=== PATIENT | male | born 1970 | race Caucasian/White ===

== ENCOUNTER 2019-02-22 15:37 | Emergency (ER) | payer SELFPAY ==
[2019-02-22 15:40] VITALS: BP 164/101; PULSE 112; RESP 20; TEMP 36.8; O2SAT 95
--- NOTE | 2019-02-22 15:48 | W.ED.GENAD ---
Discharge Plan Disposition Patient Disposition: HOME Condition: Good Discharge Details Chief Complaint: EarProblem Clinical Impression: Otitis media Primary Care Provider: Arsen Arreola ED Provider: Jose Calvo Home Meds and New Rx's Prescriptions: New amoxicillin-pot clavulanate [Augmentin] 875-125 mg tablet 1 tab PO BID Qty: 14 RF: 0 loratadine 10 mg capsule 10 mg PO DAILY Qty: 14 RF: 0 Discharge Instructions Instructions: Otitis Media (ED) Additional Instructions: Please take the antibiotic as directed. Please take the antihistamine. Please take 800 mg of ibuprofen every 6 hours and 1000 mg of Tylenol every 6 hours if you notice any worsening of your symptoms, or any new symptoms such as vomiting, diarrhea, fever, chills, shortness of breath, chest pain, numbness, weakness, or fainting , please return immediately to the emergency department for reevaluation. Please follow up with your primary care provider as soon as possible for reassessment and reevaluation. As always, it was a pleasure participating in your medical care today. . Referrals: Arsen Arreola [Primary Care Provider] - Medical Decision Making This is a pleasant 48-year-old male who presents for evaluation of ear pain. Physical exam demonstrates evidence of mild otitis media on the right. No red flags of malignant otitis externa, or other significant abnormalities. No nuchal tenderness or rigidity. No fever or chills. Signs and symptoms are consistent with mild otitis media. He will be given a prescription for antibiotic, loratadine, and recommend continue Tylenol and Motrin. I have extensively reviewed the treatment plan and discharge instructions with the patient. I have addressed all patient concerns at this time. The patient was made aware of what symptoms to monitor for that would warrant a return to the emergency department. Discussed the plan with the patient, they demonstrate verbal understanding and agreement with our assessment and plan at this time. HPI General Date/Time Provider Initiated Documentation: 02/22/19 15:48. HPI Narrative: This is a pleasant 48-year-old male who presents today for evaluation of right-sided ear pain for the last 3 days. He denies fever or chills. He denies headache, vision changes, nausea vomiting or diarrhea. He denies any significant hearing changes. He has not been swimming. He denies any other modifying factors. He has been taking Tylenol but has had no significant improvement of his symptoms with this. He denies any other complaints or modifying factors. Related Data Home Medications Medication Instructions Recorded Confirmed amoxicillin-pot clavulanate 1 tab PO BID #14 tab 02/22/19 [Augmentin] loratadine 10 mg PO DAILY #14 cap 02/22/19 Previous Rx's Medication Instructions Recorded amoxicillin-pot clavulanate 1 tab PO BID #14 tab 02/22/19 [Augmentin] loratadine 10 mg PO DAILY #14 cap 02/22/19 Allergies Allergy/AdvReac Type Severity Reaction Status Date / Time acetaminophen Allergy Mild skin rash Unverified 02/22/19 15:43 oxycodone [Oxycodone] Allergy Mild skin rash Unverified 02/22/19 15:43 General Stated Complaint: EarProblem CARLOS: 3 Review of Systems Review of Systems All systems reviewed & are unremarkable except as noted in HPI and below PFSH Surgical History Endoscopic Carpal Tunnel release (09/22/12) Fracture, Open Treatment (09/22/12) Social History Smoking/Tobacco Use Status: Current every day Alcohol Intake: never Drug use: Never Substance use type: does not use Do you feel safe at home: Yes Do you feel safe in your relationship?: Yes Exam Narrative Exam Narrative: 1.Const: Well-nourished, Well-developed, appearing stated age 2.Eyes: PERRL, no conjunctival injection, and symmetrical lids. 3.ENT: Atraumatic external nose and ears. Moist MM. Neck: Symmetric, trachea midline, No thyromegaly. There is mild evidence of erythema behind the right tympanic membrane, no significant amount of purulent effusion. No evidence of otitis externa. Patient demonstrates good movement of cervical neck. There is no nuchal rigidity, no nuchal tenderness. Patient is able to flex the neck without any difficulty or significant pain. Negative Kernig's and Brudzinski sign. 4.CVS: +S1/S2, No murmurs or gallops. Peripheral pulses 2+ and equal in all extremities. Brisk capillary refill in all extremities. 5.RESP: Unlabored respiratory effort. Clear to auscultation bilaterally. No wheezes rales or rhonchi 6.GI: Soft, Nontender/Nondistended, No hepatosplenomegaly. No guarding or rebound. 7.MSK: Normocephalic/Atraumatic, Extremities w/o deformity or ttp No cyanosis or clubbing, Normal movement of all extremities 8.Skin: Warm, Dry. No rashes or lesions. 9.Neuro: manufacturer agent II-XII grossly intact. Sensation grossly intact, no focal neurologic deficits. 10.Psych: (AAO) x3. Appropriate mood and affect Course Vital Signs Temperature 36.8 C 02/22/19 15:40 Pulse 112 H 02/22/19 15:40 Respiratory Rate 20 02/22/19 15:40 Blood Pressure 164/101 H 02/22/19 15:40 Pulse Oximetry 95 02/22/19 15:40 Temperature 36.8 C 02/22/19 15:40 Temperature Source Temporal Artery Scan 02/22/19 15:40 Pulse 112 H 02/22/19 15:40 Respiratory Rate 20 02/22/19 15:40 Respiratory Effort Non-Labored 02/22/19 15:40 Blood Pressure 164/101 H 02/22/19 15:40 Pulse Oximetry 95 02/22/19 15:40 Oxygen Delivery Method Room Air 02/22/19 15:40 Oxygen Flow Rate 0 02/22/19 15:40 Pain Level 9 02/22/19 15:40
[2019-02-22 17:03] VITALS: BP 164/101; PULSE 112; RESP 20; TEMP 36.8; O2SAT 95
== END 2019-02-22 16:05 | disposition home or self-care (01) ==
PROVIDERS: Emergency Provider Student in an Organized Health Care Education/Training Program; PCP Family Medicine
DX: H66.91 Otitis media, unspecified, right ear (principal)
CPT/HCPCS: 99283

== ENCOUNTER 2020-03-03 09:10 | Emergency (ER) | payer OTHER, SELFPAY ==
[2020-03-03 09:14] VITALS: BP 123/91; PULSE 127; RESP 18; TEMP 36.8; O2SAT 97
--- NOTE | 2020-03-03 09:23 | ED.GENADUL_ITS ---
Discharge Plan Disposition Patient Disposition: HOME Condition: Improving Discharge Details Chief Complaint: Cellulitis Clinical Impression: Abscess Primary Care Provider: Arsen Arreola ED Provider: Cosmo Keith Home Meds and New Rx's Prescriptions: New amoxicillin-pot clavulanate 875-125 mg tablet 1 tab PO BID 10 Days Qty: 20 RF: 0 Discharge Instructions Instructions: Abscess (ED) Additional Instructions: You have an appointment tomorrow in surgery clinic at 11:30 AM for wound recheck. The surgery clinic number is [phone] until that time. This likely will become discolored with drainage. Return if you have increasing pain, shaking chills or fever, or any other acute concerns. May use ibuprofen as needed for pain. Please take Augmentin as prescribed for its entire course. Stand Alone Forms: Work Release Medical Decision Making 49-year-old male presents with 2 to 3 days of right upper back erythema and swelling. He arrives tachycardic and in pain. He clearly has erythema and fluctuance of the right upper back. He has a lower C-spine posterior Superman tattoo. Inferior to the right of this appears to be focal fluctuance. Patient was consented for incision and drainage. Prepped and draped in standard sterile fashion, anesthetized with lidocaine with epinephrine. I made an incision at the area of fluctuance and expressed 8 to 10 cc of purulent fluid with fatty tissue present as well. Consider infected sebaceous cyst. The did appear to track superior under the area of the patient's tattoo. It was packed with 1 inch gauze and dressed. Culture obtained. Patient placed on Augmentin. Case was discussed with Dr. Fisher and the patient will be followed up in surgery clinic for recheck/wound check tomorrow at 11:30 AM. He understands indications to return to the ER in the interim. HPI General Mode of arrival: ambulatory . Date/Time Provider Initiated Documentation: 03/03/20 09:12 . Limitations to Documentation: no limitations . Information obtained by: patient . History of Present Illness 49 year old M presents to the emergency department with the chief complaint of Abscess on back, draining, described as moderate and similar to prior episodes, Quality is described as dull and constant, and is localized to the back. Patient r eports no radiation. and it has been constant. No relieving factors improve symptom(s), No exacerbating factors reported . Patient notes denies fever/chills, loss of appetite, nausea/vomiting and syncope. Patient did receive the following treatments prior to arrival, other Related Data Home Medications Medication Instructions Recorded Confirmed amoxicillin-pot clavulanate 1 tab PO BID 10 Days #20 tab 03/03/20 Previous Rx's Medication Instructions Recorded amoxicillin-pot clavulanate 1 tab PO BID 10 Days #20 tab 03/03/20 Allergies Allergy/AdvReac Type Severity Reaction Status Date / Time oxycodone [Oxycodone] Allergy Mild skin rash Unverified 03/03/20 09:19 General Stated Complaint: Cellulitis CARLOS: 3 PFS Surgical History Endoscopic Carpal Tunnel release (09/22/12) RIGHT Fracture, Open Treatment (09/22/12) ORIF PERILUNATE DILOCATION RIGHT. Social History Smoking/Tobacco Use Status: Current every day Tobacco Type: cigarettes Alcohol Intake: never Drug use: Never Substance use type: does not use Do you feel safe at home: Yes Do you feel safe in your relationship?: Yes Exam Narrative Exam Narrative: GEN: awake, alert, oriented 3. Pleasant, well groomed, interactive. HEAD: Normocephalic, atraumatic ENT: Mucous membranes moist, oropharynx unremarkable, External ear exam unremarkable EYES: PERRL, EOMI NECK: Full ROM, no RUKHSANA, no menigismus CHEST/RESP: Nontender, no respiratory distress Back: At the patient's lower cervical spine midline there is a superman tattoo. Inferior and to the right of this is a large area of pointing fluctuance with overlying erythema. It is tender to palpation EXT: Full ROM, no edema, no rash Neuro: Grossly normal neurologic exam, conversant, interactive. Psych: Speech fluent, thoughts congruent, affect normal Course Vital Signs Vital signs: Vital Signs Temperature 36.8 C 03/03/20 09:14 Pulse 127 H 03/03/20 09:14 Respiratory Rate 18 03/03/20 09:14 Blood Pressure 123/91 H 03/03/20 09:14 Pulse Oximetry 97 03/03/20 09:14 Temperature 36.8 C 03/03/20 09:14 Temperature Source Oral 03/03/20 09:14 Pulse 127 H 03/03/20 09:14 Respiratory Rate 18 03/03/20 09:14 Respiratory Effort Non-Labored 03/03/20 09:18 Blood Pressure 123/91 H 03/03/20 09:14 Blood Pressure Position Sitting 03/03/20 09:14 Pulse Oximetry 97 03/03/20 09:14 Oxygen Delivery Method Room Air 03/03/20 09:14 Oxygen Flow Rate 0 03/03/20 09:14 Pain Level 8 03/03/20 09:14 Procedures Abscess I/D Site: Other (Back) Side (if applicable): Right Local Anesthetic: Lidocaine 1% Amount of anesthesia used (mL): 3 Technique: Incised with #11 Blade Amount of fluid expressed (mL): 8 Packing used?: Plain
[2020-03-03] MEDS: diphenhydrAMINE 25 MG CAP 50 MG PO (09:52)
[2020-03-03] MEDS: Amox. 875/Clav. 125, 2 TABS/BTL 1 TAB PO (09:54)
== END 2020-03-03 10:00 | disposition home or self-care (01) ==
PROVIDERS: Emergency Provider Emergency Medicine; PCP Family Medicine
DX: L03.312 Cellulitis of back [any part except buttock and flank] (principal)
CPT/HCPCS: 10060; 87070

== ENCOUNTER 2020-03-04 12:11 | Outpatient (RCR) | payer OTHER, SELFPAY ==
[2020-03-04] MEDS: Normal Saline Flush 10 ML SYR IVP (12:21)
[2020-03-04] MEDS: cefTRIAXone 1 GM/50 ML BAG IVPB (12:21)
== END 2020-03-28 23:59 | disposition home or self-care (01) ==
LOC: INF 12:11
PROVIDERS: PCP Family Medicine; Visit Provider Surgery
DX: L02.212 Cutaneous abscess of back [any part, except buttock and flank] (principal)
CPT/HCPCS: 96365; J0696

== ENCOUNTER 2020-03-05 08:43 | Inpatient (IN) | payer OTHER, SELFPAY ==
[2020-03-05 09:29] VITALS: BP 160/96; PULSE 98; RESP 18; TEMP 36.3; O2SAT 97
[2020-03-05 09:29] LABS: Abs Immature Grans 1.54 k/cumm (0.0-0.09); HCT 38.7 % (40.0-50.0); HGB 13.8 g/dL (13.5-17.5); Mean Corp. HGB Concentration 35.7 g/dL (32.0-36.0); Mean Corpuscular Hemoglobin 29.2 pg (27.0-33.0); Mean Platelet Volume 9.9 fL (8.0-11.0); Platelet Count 364 x1000/uL (130-400); RBC 4.72 m/cumm (4.50-6.00); RBC Distribution Width 13.2 % (11.8-14.1); White Blood Cell Count 15.11 k/cumm (4.4-10.8)
[2020-03-05] MEDS: cefTRIAXone 2 GM/50 ML BAG IVPB (09:30)
[2020-03-05] MEDS: Lactated Ringers 1,000 ML 75 ML IV (09:30)
[2020-03-05 09:41] LABS: Anion Gap 10.8 mmol/L (3-11); BUN 15 mg/dL (7-18); CO2 28.2 mmol/L (21.0-32.0); Calcium 9.2 mg/dL (8.5-10.1); Chloride 91 mmol/L (98-107); Glucose 455 mg/dL (74-106); Potassium 3.2 mmol/L (3.5-5.1); Sodium 130 mmol/L (136-145)
[2020-03-05 09:59] LABS: Absolute Lymphocyte Count 3.78 k/cumm (1.2-3.4); Absolute Monocyte Count 1.21 k/cumm (0.11-0.7); Absolute Neutrophil Count 8.91 k/cumm (1.2-6.7); Atypical Lymphocytes % 4
[2020-03-05 10:00] LABS: Diff Comment Manual Differential; Polychromasia Present
[2020-03-05] MEDS: Bupivacaine 0.25% Pres-Free 10 ML VIAL (11:47)
[2020-03-05] MEDS: Bupivacaine LIPOSOME/PF 133 MG/10 ML VIAL IJ (11:47)
[2020-03-05 11:50] VITALS: BP 148/98; PULSE 94; RESP 18; TEMP 36.4; O2SAT 96
[2020-03-05 14:16] VITALS: BP 113/71; PULSE 88; RESP 16; TEMP 36.6; O2SAT 98
--- NOTE | 2020-03-05 14:21 | W.PM.OP ---
Date of service: 03/05/20 Time of Service: 14:21 Operative Note Operative Note DATE OF PROCEDURE: 03/05/20 PRE-OP DIAGNOSIS: Upper back abscess POST-OP DIAGNOSIS: same PROCEDURE: Incision and drainage of abscess SURGEON: Tabatha Fisher ANESTHESIA: GETA (ASA 2/ Swathi Mo CRNA) and local (exparel 10 cc mixed 50/50 with 0.25% Bupivocaine) ESTIMATED BLOOD LOSS: 50 PATHOLOGY: none sent COMPLICATIONS: None Patient was transported to: floor Patient's condition: stable Indications: Mr. Martinez is a pleasant 49-year-old gentleman who went to the emergency department on March 03 for an infection in his upper back. He underwent an incision and drainage of the abscess and it was packed. He was placed on Augmentin and asked to follow-up with us on Wednesday. He was seen by Dr. Hernandez on Wednesday the packing was changed and he was given a one-time dose of IV Rocephin. He comes back to the office today with worsening erythema and swelling that now wraps around his neck. On exam there is a fluctuant mass just below the occipital bone which is quite tender. There is copious purulent discharge coming out of the incision that was done in the emergency department. The patient denies any fevers. Extensive incision and drainage in the operating room was recommended to the patient. Risks, benefits and complications were reviewed with him. Questions were answered and entertained and to his satisfaction and he wished to proceed. No guarantees were given or implied. Findings: There is a multiloculated abscess that communicated from the upper back all the white up to the occipital bone. There was tunneling all the way down to the trapezius muscle overlying the spine. The abscess cavity measured 10 cm wide, 10 cm long and 4 cm deep. Procedure Description: After informed consent was obtained from the patient he was taken to the operating room and placed in a supine position on the operating room table. Monitors were applied, and the patient was preoxygenated. Using new covert 19 droplet precautions the patient was placed under general anesthesia and intubated without difficulty. The patient was then placed in a right lateral position with his left arm resting on pillows. His knees were bent and he had padding between his knees. There was also padding under his right arm. At this time up timeout was done. The patient's name, date of , allergies to medications, procedure to be done, and antibiotic prophylaxis were reviewed. Fire risk was assessed. The dressing was removed off of the patient's neck and the area from the occipital bone down to past the initial incision was prepped and draped in a standard fashion with iodine. I then inserted an 18-gauge needle into the fluctuant area just below the occipital bone and was able to remove some purulent fluid. An incision was then made with a 10 blade over the fluctuant area just below the occipital bone. Dissection was done with cautery down to the subcutaneous tissue. Next the incision on his upper back was extended slightly using a 10 blade. Again using cautery dissection was done down to the subcutaneous tissue and the abscess cavity that had been drained. I then placed my finger in the lower incision and another finger in the upper incision and was able to meet my fingers in the middle. There were a lot of septations palpated which I tried to clean as best I could. There is continued purulent discharge at this time and so I made the decision to connect both incisions. A 10 blade was used to make a linear incision connecting to prior openings this measured 10 cm in length. Bleeding was stopped using cautery. I was able to then retract the skin and using my finger I broke all of the septations. The wound was then thoroughly irrigated with normal saline. The wound was measured and was noted to be 10 cm in width and 10 cm in length. I irrigated the wound a little bit more and started to inspect the bottom of this abscess cavity and noted some more purulent discharge. I was able to then break some septations further down until I was on the trapezius muscle. As much of the septations were removed as I felt comfortable as it was going so deep. The wound was again irrigated with another 200 cc of saline. Bleeding was noted from the dermis and subcutaneous tissue and this was cauterized. Once I felt that the entire abscess cavity had been thoroughly drained I placed some FloSeal into the wound to help with the oozing that I noted. The depth of the abscess cavity was measured at about 4 cm. 10 cc of Exparel mixed with 10 cc of quarter percent bupivacaine was then injected into the dermis and subcutaneous tissue for postoperative pain control. At this point the wound was packed with a moist Kerlix. The skin was cleaned and dried and then an ABD was applied over the Kerlix and secured with tape. Sponge and instrument counts were correct at the end of the case. The patient was placed back onto his back on the gurney. He was then woken up and extubated. Once recovered he was taken up to [facility]. The patient tolerated the procedure well and there were no immediate complications.
[2020-03-05] MEDS: Acetaminophen 325 MG TAB 650 MG PO (15:16)
[2020-03-05] MEDS: Insulin Aspart 300 UNITS/3 ML PEN SC ×2 (15:17→17:01)
--- NOTE | 2020-03-05 15:17 | MCONE_ITS ---
Date of service: 03/05/20 Time of Service: 15:18 Assessment and Plan Assessment and plan (1) Type 2 diabetes mellitus: Status: Acute Assessment and plan: Patient's history of polyuria, polydipsia, and weight loss along with his hyperglycemia well above 200 is enough to give him the diagnosis of diabetes mellitus. Time course and lack of acidosis is consistent with type 2 diabetes. A1c is pending which should give us a better sense for his chronic level of hyperglycemia, but expect this number to be in the double digits. We will start with conservative basal insulin dosing, along with sliding scale insulin and metformin. Patient is hopeful he will avoid injectable therapy long-term. He is very motivated. We will have him meet with inclusion paraeducator as well. Short-term, her goal is to use insulin to get the blood sugar at least below 200 so that we will not have detrimental effects on healing. (2) Rash: Status: Acute Assessment and plan: Chronic skin rash, distribution possibly consistent with cholesterol deposits, though not typically appearing. Lipids have been ordered. May also be small tophaceous collections. We will add uric acid to the labs. May consider punch biopsy, but this could be done as an outpatient. (3) Smoker: Status: Acute Assessment and plan: Patient pre-contemplative in terms of quitting smoking at this time, but admits he would like to quit eventually. He declines nicotine replacement therapy or other medications, CT denies strong cravings. (4) DVT prophylaxis: Status: Acute Assessment and plan: Will defer to surgery, but would suggest Lovenox. (5) Abscess: Status: Acute History of Present Illness History of Present Illness Chief Complaint: High blood sugar Narrative: 49-year-old male smoker who reported no significant past medical history who was admitted for recurrence of a large subcutaneous abscess along the area of his cervical spine who was noted to have blood sugar in the 400s. Patient was first seen in the emergency room on March 03 with 4 days of increasing pain and redness and swelling of his right upper back. He was diagnosed with infected sebaceous cyst and incision and drainage was performed in the emergency room with packing placed. He was placed on Augmentin and scheduled for follow-up with surgery. He followed up the next day and his abscess was well drained but the redness was worsening. On day of admission he was seen again by Dr. Fisher the surgical clinic. At that point it was clear to Dr. Fisher that the abscess was not fully drained and extended superiorly up to his occiput. At that point he was admitted for IV antibiotics and incision and drainage under anesthesia. 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 He has not followed up for medical care for this issue. He does admit that he drinks a lot of water and urinates frequently. He states he has decreased in weight from around 280 to 210 pounds over the past several months, but attributes this weight loss to improvements in his diet. He states he has not seen his primary rn patient care in well over a decade, because he felt like he was healthy. Consults Consult date: 03/05/20 Requesting physician: Tabatha Fisher Review of Systems Narrative: General: No fevers or chills. Weight loss as above. HEENT: He has noticed a dull headache just since surgery. Also some sore throat after surgery. No rhinorrhea or nasal congestion. Moving neck around much easier after surgery. Respiratory: No cough or shortness of breath Cardiovascular: No chest pain or palpitations, no lightheadedness. GI: No nausea or vomiting. He is hungry. No diarrhea or constipation. No blood in the stool or melena. : No dysuria or hematuria. He does have polyuria. No genital sores. MSK: No joint pain or swelling currently other than pain in the neck and upper back related to the infection. He does have a history of gout. Skin: No open wounds other than his abscess. He does have red bumpy rash on elbows and knees over the past year or 2. Neurologic: Some dull headache after surgery, was not present before. No weakness or numbness. Hematologic: No abnormal bleeding or bruising. Psychiatric: No anxiety depression. [facility] Medical History Gout (Chronic) Kidney stone (Chronic) Surgical History Endoscopic Carpal Tunnel release (09/22/12) RIGHT Fracture, Open Treatment (09/22/12) ORIF PERILUNATE DILOCATION RIGHT. Family History (Updated 03/05/20 @ 15:50 by Santana Yeung) Paternal Grandmother Diabetes Father Diabetes Heart disease Social History (Updated 03/05/20 @ 15:52 by Santana Yeung) Smoking/Tobacco Use Status: Current every day Tobacco Type: cigarettes Alcohol Intake: never Drug use: Never Substance use type: does not use Do you feel safe at home: Yes Do you feel safe in your relationship?: Yes Additional Social history: This in [place] with a daughter and his gr andchildren. Not currently . 5 adult children in total. 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 Exam Narrative Exam Narrative: General: Alert and oriented x3, friendly and jovial, no acute distress HEENT: Normocephalic, atraumatic. Gingiva clear with no icterus. Moist mucous membranes with oropharynx benign. Neck is supple but tender on the right side. He is able to perform close to normal range of motion with mild pain (states this is a big improvement). No anterior neck masses or thyromegaly. Lungs: Clear to auscultation bilaterally normal effort Cardiovascular: Regular rate and rhythm with no murmurs gallops or rubs. Pedal pulses intact bilaterally Abdomen: Active bowel sounds, soft, nontender nondistended with no masses. Extremities: No cyanosis clubbing or edema. Nontender to palpation legs. Skin: Incision is bandaged with serosanguineous drainage noted, did not take the bandage down as it was just placed by surgery. Clusters of firm pink papules, many with white tissue centrally that looks like a pustule, but is firm, of some of these lesions coalescing into nodular plaques, on extensor elbow and knees. Musculoskeletal: No joint redness or swelling Neurologic: Cranial nerves grossly intact, normal movement and gross sensation in 4 extremities. Normal coordination. No tremor. Results Last Vital Signs Temp 36.6 C 03/05/20 14:16 Pulse 88 03/05/20 14:16 Resp 16 03/05/20 14:16 BP 113/71 03/05/20 14:16 Pulse Ox 98 03/05/20 14:16 Labs Result diagrams: 03/05/20 09:15 03/05/20 09:15 Labs: Laboratory Results - last 24 hr 03/05/20 03/05/20 09:15 09:15 WBC 15.11 H RBC 4.72 Hgb 13.8 Hct 38.7 L MCV 82.0 MCH 29.2 MCHC 35.7 RDW 13.2 Plt Count 364 MPV 9.9 Immature Gran % See Differential Neutrophils % 55.0 Band Neutrophils % 4.0 Lymphocytes % 21.0 Atypical Lymphs % 4 Monocytes % 8.0 Eosinophils % 2.0 Basophils % 0.0 Metamyelocytes % 5.0 Myelocytes % 1.0 Absolute Neutrophils 8.91 H Absolute Lymphocytes 3.78 H Absolute Monocytes 1.21 H Absolute Eosinophils 0.30 Absolute Basophils 0.00 Differential Comment Manual differential RBC Morphology See below Polychromasia Present Sodium 130 L Potassium 3.2 L Chloride 91 L Carbon Dioxide 28.2 Anion Gap 10.8 BUN 15 Creatinine 0.90 Estimated GFR/1.73 m2 >= 60.00 Glucose 455 H Calcium 9.2
[2020-03-05 15:26] VITALS: BP 133/80; PULSE 92; RESP 18; TEMP 36.6; O2SAT 94
[2020-03-05] MEDS: metFORMIN 500 MG TAB PO (17:01)
[2020-03-05 17:12] LABS: Glucose 450 mg/dL (74-106)
[2020-03-05 17:18] LABS: COMMENT (LAB VIEW ONLY) 67.07 mg/dL; Microalb ug/mg Crea 36.7 ug/mg Cr
[2020-03-05] MEDS: HYDROcodone 5/Acetaminophen 325 TAB PO (18:35)
[2020-03-05] MEDS: Insulin Glargine 300 UNITS/3 ML PEN 18 UNITS SC (22:03)
[2020-03-05] MEDS: Insulin Aspart 300 UNITS/3 ML PEN 10 UNITS SC (22:09)
[2020-03-05 23:05] VITALS: BP 110/84; PULSE 99; RESP 18; TEMP 36.7; O2SAT 94
[2020-03-06] MEDS: HYDROcodone 5/Acetaminophen 325 TAB PO ×3 (03:06→16:12)
[2020-03-06] MEDS: Ketorolac 30 MG/ML VIAL IVP ×3 (03:06→21:41)
[2020-03-06] MEDS: Normal Saline Flush 10 ML SYR IVP ×4 (03:07→14:09)
[2020-03-06 03:13] VITALS: BP 140/89; PULSE 80; RESP 18; TEMP 35.8; O2SAT 95
[2020-03-06 06:45] LABS: Abs Immature Grans 1.99 k/cumm (0.0-0.09); HCT 37.8 % (40.0-50.0); HGB 13.4 g/dL (13.5-17.5); Mean Corp. HGB Concentration 35.4 g/dL (32.0-36.0); Mean Corpuscular Hemoglobin 29.1 pg (27.0-33.0); Mean Corpuscular Volume 82.2 fL (80-95); Mean Platelet Volume 9.8 fL (8.0-11.0); Platelet Count 389 x1000/uL (130-400); RBC Distribution Width 13.1 % (11.8-14.1); White Blood Cell Count 20.78 k/cumm (4.4-10.8)
[2020-03-06 07:06] LABS: ALT 14 U/L (16-63); AST 11 U/L (15-37); Alkaline Phosphatase 153 U/L (46-116); Anion Gap 8.1 mmol/L (3-11); BUN 21 mg/dL (7-18); Bilirubin, Total 0.2 mg/dL (0.2-1.0); CO2 30.9 mmol/L (21.0-32.0); CREATININE 0.82 mg/dL (0.70-1.30); Calcium 8.8 mg/dL (8.5-10.1); Chloride 92 mmol/L (98-107); Cholesterol 296 mg/dL (<200); Glucose 342 mg/dL (74-106); HDL Cholesterol 17 mg/dL (40-60); Magnesium 1.7 mg/dL (1.8-2.4); Potassium 3.9 mmol/L (3.5-5.1); Sodium 131 mmol/L (136-145); Total Protein 6.5 g/dL (6.4-8.2); Triglyceride 742 mg/dL (<150)
[2020-03-06 07:12] LABS: Hemoglobin A1C 13.3 % (3.8-5.6)
[2020-03-06 07:20] LABS: Absolute Lymphocyte Count 3.95 k/cumm (1.2-3.4); Absolute Monocyte Count 0.83 k/cumm (0.11-0.7); Absolute Neutrophil Count 14.34 k/cumm (1.2-6.7); Atypical Lymphocytes % 1
[2020-03-06 07:21] LABS: Diff Comment Manual Differential; Polychromasia Present
[2020-03-06 07:24] LABS: LDL CHOLESTEROL 94 mg/dL (<100)
[2020-03-06] MEDS: HYDROmorphone 2 MG/ML VIAL 1 MG IVP (07:38)
[2020-03-06] MEDS: Silver Nitrate Stick 1 EACH TP (08:30)
[2020-03-06] MEDS: metFORMIN 500 MG TAB PO ×2 (09:08→16:13)
[2020-03-06] MEDS: Insulin Aspart 300 UNITS/3 ML PEN SC ×3 (09:10→17:01)
--- NOTE | 2020-03-06 09:10 | PGE_ITS ---
Date of Service Date of service: 03/06/20 Time of Service: 09:10 Assessment and Plan Assessment and plan (1) Abscess: Status: Acute Assessment and plan: A\\ wound looks good. Not a lot of slough WBC count has increased to 20,000 P\\ Will add vancomycin Unfortunately The culture done in the ER has not grown anything (2) Type 2 diabetes mellitus: Status: Acute Assessment and plan: A\\ A1C is 13.3 P\\ Per Dr. Islas Appreciate their assitance Qualifiers: Diabetes mellitus machine long goods helper insulin use: without machine long goods helper use Diabetes mellitus complication status: with hyperglycemia Qualified Code(s): E11.65 - Type 2 diabetes mellitus with hyperglycemia (3) Rash: Status: Acute Assessment and plan: Chronic skin rash, distribution possibly consistent with cholesterol deposits, though not typically appearing. Lipids have been ordered. May also be small tophaceous collections. We will add uric acid to the labs. May consider punch biopsy, but this could be done as an outpatient. (4) Smoker: Status: Acute Assessment and plan: Patient pre-contemplative in terms of quitting smoking at this time, but admits he would like to quit eventually. He declines nicotine replacement therapy or other medications, CT denies strong cravings. (5) DVT prophylaxis: Status: Acute Assessment and plan: A\\ Patient is ambulatory but with all of his other issues and the fact that he is a smoker he is at risk P\\ Start Lovenox Subjective Subjective Interval history since last seen: Mr. Martinez is doing well. He was able to sleep last night. They did have to re-enforce the ABD overnight. No fevers Pain is well controlled on Tylenol and Toradol. Exam Const General: cooperative, comfortable and no acute distress Orientation: alert and oriented x3 Neck Other: There was a small bleeder noted and this was stopped with Silver Nitrate Neck images: 1. Incision 10 cm long, 10 cm wide and 4 cm deep. Clean and dry. minimal drainage Resp Effort & Inspection: normal respiratory effort Auscultation: clear to auscultation bilaterally Cardio Rate: regular rate Rhythm: regular rhythm Objective Objective Clinical Data: Abnormal lab results 03/05/20 03/05/20 03/05/20 Range/Units 09:15 09:15 16:50 WBC 15.11 H (4.4-10.8) k/cumm Hgb (13.5-17.5) g/dL Hct 38.7 L (40.0-50.0) % Absolute Neutrophils 8.91 H (1.2-6.7) k/cumm Absolute Lymphocytes 3.78 H (1.2-3.4) k/cumm Absolute Monocytes 1.21 H (0.11-0.7) k/cumm Sodium 130 L (136-145) mmol/L Potassium 3.2 L (3.5-5.1) mmol/L Chloride 91 L (98-107) mmol/L BUN (7-18) mg/dL Glucose 455 H 450 H (74-106) mg/dL Hemoglobin A1c (3.8-5.6) % Magnesium (1.8-2.4) mg/dL AST (15-37) U/L ALT (16-63) U/L Alkaline Phosphatase (46-116) U/L Albumin (3.4-5.0) g/dL Triglycerides (<150) mg/dL Total Cholesterol (<200) mg/dL HDL Cholesterol (40-60) mg/dL Ur Microalbumin mg/L (1.30-20.0) mg/L 03/05/20 03/06/20 03/06/20 Range/Units 17:01 06:30 06:30 WBC (4.4-10.8) k/cumm Hgb (13.5-17.5) g/dL Hct (40.0-50.0) % Absolute Neutrophils (1.2-6.7) k/cumm Absolute Lymphocytes (1.2-3.4) k/cumm Absolute Monocytes (0.11-0.7) k/cumm Sodium 131 L (136-145) mmol/L Potassium (3.5-5.1) mmol/L Chloride 92 L (98-107) mmol/L BUN 21 H D (7-18) mg/dL Glucose 342 H D (74-106) mg/dL Hemoglobin A1c 13.3 H (3.8-5.6) % Magnesium 1.7 L (1.8-2.4) mg/dL AST 11 L (15-37) U/L ALT 14 L (16-63) U/L Alkaline Phosphatase 153 H (46-116) U/L Albumin 2.0 L (3.4-5.0) g/dL Triglycerides 742 H (<150) mg/dL Total Cholesterol 296 H (<200) mg/dL HDL Cholesterol 17 L (40-60) mg/dL Ur Microalbumin mg/L 24.6 H (1.30-20.0) mg/L 03/06/20 Range/Units 06:30 WBC 20.78 H D (4.4-10.8) k/cumm Hgb 13.4 L (13.5-17.5) g/dL Hct 37.8 L (40.0-50.0) % Absolute Neutrophils 14.34 H (1.2-6.7) k/cumm Absolute Lymphocytes 3.95 H (1.2-3.4) k/cumm Absolute Monocytes 0.83 H (0.11-0.7) k/cumm Sodium (136-145) mmol/L Potassium (3.5-5.1) mmol/L Chloride (98-107) mmol/L BUN (7-18) mg/dL Glucose (74-106) mg/dL Hemoglobin A1c (3.8-5.6) % Magnesium (1.8-2.4) mg/dL AST (15-37) U/L ALT (16-63) U/L Alkaline Phosphatase (46-116) U/L Albumin (3.4-5.0) g/dL Triglycerides (<150) mg/dL Total Cholesterol (<200) mg/dL HDL Cholesterol (40-60) mg/dL Ur Microalbumin mg/L (1.30-20.0) mg/L Vital Signs Temperature 96.4 F L 03/06/20 03:13 Temperature Source Tympanic 03/06/20 03:13 Pulse 80 03/06/20 03:13 Pulse Rhythm Regular 03/06/20 03:47 Respiratory Rate 18 03/06/20 03:13 Respiratory Effort Non-Labored 03/06/20 03:47 Respiratory Depth Normal 03/06/20 03:47 Respiratory Pattern Normal 03/06/20 03:47 Blood Pressure 140/89 03/06/20 03:13 Pulse Oximetry 95 03/06/20 03:13 Oxygen Delivery Method Room Air 03/06/20 03:13 Oxygen Flow Rate 0 03/06/20 03:13 Pain Level 0 03/06/20 07:38 Intake & Output 03/05/20 03/05/20 03/06/20 11:59 23:59 11:59 Intake Total 1525 / 1525 250 / 250 Output Total 1999 Balance -600 / -475 125 / -475 250 / 250 Weight 209 lb 15.986 oz Intake: IV 1045 / 1045 Oral 480 / 480 240 / 240 Output: Urine 1999 Other: Urine Color Yellow Yellow Yellow Urine Appearance Clear Clear Clear Urine Odor None Voiding Methods Toilet Toilet Laboratory Results WBC 20.78 k/cumm (4.4-10.8) H D 03/06/20 06:30 RBC 4.60 m/cumm (4.50-6.00) 03/06/20 06:30 Hgb 13.4 g/dL (13.5-17.5) L 03/06/20 06:30 Hct 37.8 % (40.0-50.0) L 03/06/20 06:30 MCV 82.2 fL (80-95) 03/06/20 06:30 MCH 29.1 pg (27.0-33.0) 03/06/20 06:30 MCHC 35.4 g/dL (32.0-36.0) 03/06/20 06:30 RDW 13.1 % (11.8-14.1) 03/06/20 06:30 Plt Count 389 x1000/uL (130-400) 03/06/20 06:30 MPV 9.8 fL (8.0-11.0) 03/06/20 06:30 Immature Gran % See Differential 03/06/20 06:30 Neutrophils % 55.0 03/06/20 06:30 Band Neutrophils % 14.0 % 03/06/20 06:30 Lymphocytes % 18.0 03/06/20 06:30 Atypical Lymphs % 1 03/06/20 06:30 Monocytes % 4.0 03/06/20 06:30 Eosinophils % 0.0 03/06/20 06:30 Basophils % 0.0 03/06/20 06:30 Metamyelocytes % 3.0 % 03/06/20 06:30 Myelocytes % 5.0 % 03/06/20 06:30 Absolute Neutrophils 14.34 k/cumm (1.2-6.7) H 03/06/20 06:30 Absolute Lymphocytes 3.95 k/cumm (1.2-3.4) H 03/06/20 06:30 Absolute Monocytes 0.83 k/cumm (0.11-0.7) H 03/06/20 06:30 Absolute Eosinophils 0.00 k/cumm (0.0-0.7) 03/06/20 06:30 Absolute Basophils 0.00 k/cumm (0.0-0.2) 03/06/20 06:30 Differential Comment Manual differential 03/06/20 06:30 RBC Morphology See below 03/06/20 06:30 Polychromasia Present 03/06/20 06:30 Sodium 131 mmol/L (136-145) L 03/06/20 06:30 Potassium 3.9 mmol/L (3.5-5.1) D 03/06/20 06:30 Chloride 92 mmol/L (98-107) L 03/06/20 06:30 Carbon Dioxide 30.9 mmol/L (21.0-32.0) 03/06/20 06:30 Anion Gap 8.1 mmol/L (3-11) 03/06/20 06:30 BUN 21 mg/dL (7-18) H D 03/06/20 06:30 Creatinine 0.82 mg/dL (0.70-1.30) 03/06/20 06:30 Estimated GFR/1.73 m2 >= 60.00 (mL/min/1.73m2) 03/06/20 06:30 Glucose 342 mg/dL (74-106) H D 03/06/20 06:30 Hemoglobin A1c 13.3 % (3.8-5.6) H 03/06/20 06:30 Calcium 8.8 mg/dL (8.5-10.1) 03/06/20 06:30 Magnesium 1.7 mg/dL (1.8-2.4) L 03/06/20 06:30 Total Bilirubin 0.2 mg/dL (0.2-1.0) 03/06/20 06:30 AST 11 U/L (15-37) L 03/06/20 06:30 ALT 14 U/L (16-63) L 03/06/20 06:30 Alkaline Phosphatase 153 U/L (46-116) H 03/06/20 06:30 Total Protein 6.5 g/dL (6.4-8.2) 03/06/20 06:30 Albumin 2.0 g/dL (3.4-5.0) L 03/06/20 06:30 Triglycerides 742 mg/dL (<150) H 03/06/20 06:30 Total Cholesterol 296 mg/dL (<200) H 03/06/20 06:30 LDL Cholesterol Direct 94 mg/dL (<100) 03/06/20 06:30 LDL Cholesterol, Calc Tnp mg/dL (<100) 03/06/20 06:30 HDL Cholesterol 17 mg/dL (40-60) L 03/06/20 06:30 Ur Creatinine mg/dL 67.07 mg/dL 03/05/20 17:01 Ur Microalbumin mg/L 24.6 mg/L (1.30-20.0) H 03/05/20 17:01 Microalb/Creat Ratio 36.7 ug/mg Cr 03/05/20 17:01
[2020-03-06] MEDS: Insulin Aspart 300 UNITS/3 ML PEN 10 UNITS SC (09:11)
[2020-03-06 09:37] VITALS: BP 162/103; PULSE 96; RESP 18; O2SAT 96
--- NOTE | 2020-03-06 09:46 | INITIAL_ITS ---
- If Service Date Differs Date of service: 03/06/20 Time of Service: 09:46 Care Management Initial Assess REASON FOR HOSPITALIZATION:: Abscess neck PAST MEDICAL HISTORY/PAST SURGICAL HISTORY:: Gout, kidney stone, type 2 DM. Surgical hx: Endoscopic carpal tunnel release. PREVIOUS FUNCTIONAL STATUS/SOCIAL/FAMILY SUPPORTS:: Evan lives at home, with his daughter and three grandchildren. He works fulltime at [employer] which he has done for the past 13 years. He is independent with transportation, ADL's and caring for his grandchldren. CURRENT FUNCTIONAL STATUS:: Evan is smiling and engaged during assessment. He has a wound vac in place and will need this at time of discharge. He also needs to be started on oral medication to treat DM. He does not have insurance at this time he reports his company does not provide insurance and he has not applied for Medicaid. He states his income supports the household including his daugher and grandchildren. Evan is able to discuss DM with CM his Father a year ago and had DM. Patrick states he has a long family history of the chronic disease. Patrick states he has a great support system. He admits he struggles with tobacco use and he is considering quiting in time. ADVANCE DIRECTIVES:: None on file offered forms Has patient been provided with information about the portal?: Yes Did the patient sign up for the portal?: No (Offered information ) CODE STATUS:: Full Code INSURANCE COVERAGE / FINANCIAL ISSUES:: No insurance at this time, CM placed a referral to community connections for assistance. Patient needs insurance for access to care including wound vac, DM supplies and new medications including abx. CURRENT HOME/COMMUNITY SERVICES/EQUIPMENT:: None at this time, anticipate several discharge services. PRIMARY CARE PHYSICIAN:: Arsen Arreola last provider at [facility]. Pt would like to return to the practice for his ongoing care. CM will contact provider and set up follow up appointment. POTENTIAL DISCHARGE NEEDS:: Anticipate Patrick will need follow up appointments, wound care, VNA nursing, Wound Vac through [facility], and referrals for insurance assistance. PATIENT/FAMILY EDUCATION NEEDS:: Discharge instructions, limitations and follow up plan of care including ask me three and self management. ANTICIPATED BARRIERS TO DISCHARGE:: No access to care outside the hospital, DME and pharmacy needs, lack of insurance and need to establish care for follow up. TRANSPORTATION:: Patrick will transport home when medically ready with family. PLAN:: Evan, will be discharged home when medically ready. He remains on IV abx and a wound vac in place. Anticipate he will need access to these services when discharged, CM is working with community connections to review options for insurance. CM to continue to assess for discharged needs and coordination of services.
[2020-03-06] MEDS: cefTRIAXone 1 GM/50 ML BAG IVPB (10:20)
--- NOTE | 2020-03-06 11:19 | WOUNDCONS_ITS ---
- If Service Date Differs Date of service: 03/06/20 Time of Service: 08:00 Wound Initial Evaluation Narrative: Received consult for this 49 year old gentleman for a post op wound from an abcess on his neck. Patient is alert and oriented, per his nurse he has not seen his PCP in approximately 10 years. He works at a [employer] and is still very active. His Hgba1c is 13.3, with an am glucose of 342 on 03/06/20. He has new diagnoses this admission of diabetes, hyperlipedemia as well as the abcess, which had cultures obtained which have not resulted yet. Patient is on broad spectrum IV antibiotics pending culture results - Wound neck Wound Type: Full Thickness Wound General Appearance: Unapproximated, Muscle Visible Wound Surrounding Tissue Appearance: Neville, Undermined Percent of Wound Bed Granulated/Red: 95 Percent of Wound Bed Slough/Yellow: 5 Wound Length: 10 cm (Measurements made by MD) Wound Width: 10 cm (Measurements made by MD) Wound Depth: 4 cm (Measurements made by MD) Wound Drainage Amount: Minimal Wound Drainage Odor: None/Absent Wound Drainage Description: Bloody - Circulation, Sensation, Motion Capillary Refill: Less than 3 seconds Sensation Description: Pain - Pain Pain Level: 8 (Premedicated prior to dressing removal) Pain Scale Used: Lira-Soto Faces Measurements made by MD during surgery, there is undermining at 2-3 and 9-10 of approx 3 cm eash side for length and 1 cm width. - Treatment/Dressing Change Dressing Comment: After consultation with MD, decision made to apply wound vac. - Recomendation Recomendation:: Wound vac Physcian/Nurse Practioner Notified: Yes (Dr. Fisher in room)
[2020-03-06] MEDS: VANCOMYCIN 2,000 MG in Normal Saline 500 ML 250 MG IVPB (11:23)
--- NOTE | 2020-03-06 13:11 | W.PM.PROGNOT ---
Date of Service Date of service: 03/06/20 Time of Service: 13:11 Assessment and Plan Assessment and plan (1) Type 2 diabetes mellitus: Status: Acute Assessment and plan: Patient's history of polyuria, polydipsia, and weight loss along with his hyperglycemia well above 200 is enough to give him the diagnosis of diabetes mellitus. A1c 13.3 confirms poorly controlled diabetes. Creatinine Increasing basal insulin dosing, along with scheduled bolus insulin on top of sliding scale insulin and metformin. We will have him meet with in service educator as well. We did discuss possibility of using GLP-1 agonist that is a weekly injection to complement his therapy and improve metabolic status. Care management will look into the cost of this and insurance coverage. Short-term, our goal is to use insulin to get the blood sugar at least below 200 so that we will not have detrimental effects on healing. Qualifiers: Diabetes mellitus superintendent terminal insulin use: without superintendent terminal use Diabetes mellitus complication status: with hyperglycemia Qualified Code(s): E11.65 - Type 2 diabetes mellitus with hyperglycemia (2) Rash: Status: Acute Assessment and plan: Chronic skin rash, distribution possibly consistent with cholesterol deposits, though not typically appearing. Lipids have been ordered. May also be small tophaceous collections. We will add uric acid to the labs. May consider punch biopsy, but this could be done as an outpatient. No change (3) Smoker: Status: Acute Assessment and plan: Patient pre-contemplative in terms of quitting smoking at this time, but admits he would like to quit eventually. He declines nicotine replacement therapy or other medications, CT denies strong cravings. As the patient (4) Abscess: Status: Acute Assessment and plan: Agree with addition of vancomycin at this point. Unfortunately the initial culture is not growing anything, but he could have gotten a new staph infection after the initial I&D, so prudent to cover for MRSA. (5) Hypertension: Status: Chronic Assessment and plan: Blood pressure was normal on admission, but high today. Initial normal may have been related to an active infection lowering his blood pressure. If blood pressure stays high, will initiate therapy, likely with an COURTNEY inhibitor given his diabetes. Microalbumin is also pending. (6) Hypertriglyceridemia: Status: Acute Assessment and plan: I confirm this was fasting this morning. Given his overall cardiac risk, is started on high intensity statin. Lipids can repeated as an outpatient in 6 weeks to see if he is at goal at least under 500. (7) DVT prophylaxis: Status: Acute Assessment and plan: Lovenox. Subjective Subjective Patient reports: denies diarrhea, vomiting and fever Interval history since last seen: 24-hour: Wound VAC placed this morning, vancomycin started Patient feels well this morning. Patient continues to deny any fevers. During wound VAC placement he did feel some nausea, but has resolved. He did eat well today and is hungry. Exam Narrative Exam Narrative: General: Alert and oriented x3, friendly and jovial, no acute distress HEENT: Moist mucous membranes, normal range of motion neck. Lungs: Clear to auscultation bilaterally normal effort Cardiovascular: Regular rate and rhythm with no murmurs gallops or rubs. Pedal pulses intact bilaterally Abdomen: Active bowel sounds, soft, nontender nondistended. Extremities: No cyanosis clubbing or edema. Nontender to palpation legs. Skin: wound VAC over wound upper back. Clusters of firm pink papules, many with white tissue centrally that looks like a pustule, but is firm, of some of these lesions coalescing into nodular plaques, on extensor elbow and knees (no change). Musculoskeletal: No joint redness or swelling Objective Objective Clinical Data: Abnormal lab results 03/05/20 03/05/20 03/06/20 Range/Units 16:50 17:01 06:30 WBC (4.4-10.8) k/cumm Hgb (13.5-17.5) g/dL Hct (40.0-50.0) % Absolute Neutrophils (1.2-6.7) k/cumm Absolute Lymphocytes (1.2-3.4) k/cumm Absolute Monocytes (0.11-0.7) k/cumm Sodium 131 L (136-145) mmol/L Chloride 92 L (98-107) mmol/L BUN 21 H D (7-18) mg/dL Glucose 450 H 342 H D (74-106) mg/dL Hemoglobin A1c (3.8-5.6) % Magnesium 1.7 L (1.8-2.4) mg/dL AST 11 L (15-37) U/L ALT 14 L (16-63) U/L Alkaline Phosphatase 153 H (46-116) U/L Albumin 2.0 L (3.4-5.0) g/dL Triglycerides 742 H (<150) mg/dL Total Cholesterol 296 H (<200) mg/dL HDL Cholesterol 17 L (40-60) mg/dL Ur Microalbumin mg/L 24.6 H (1.30-20.0) mg/L 03/06/20 03/06/20 Range/Units 06:30 06:30 WBC 20.78 H D (4.4-10.8) k/cumm Hgb 13.4 L (13.5-17.5) g/dL Hct 37.8 L (40.0-50.0) % Absolute Neutrophils 14.34 H (1.2-6.7) k/cumm Absolute Lymphocytes 3.95 H (1.2-3.4) k/cumm Absolute Monocytes 0.83 H (0.11-0.7) k/cumm Sodium (136-145) mmol/L Chloride (98-107) mmol/L BUN (7-18) mg/dL Glucose (74-106) mg/dL Hemoglobin A1c 13.3 H (3.8-5.6) % Magnesium (1.8-2.4) mg/dL AST (15-37) U/L ALT (16-63) U/L Alkaline Phosphatase (46-116) U/L Albumin (3.4-5.0) g/dL Triglycerides (<150) mg/dL Total Cholesterol (<200) mg/dL HDL Cholesterol (40-60) mg/dL Ur Microalbumin mg/L (1.30-20.0) mg/L Vital Signs Temperature 35.8 C L 03/06/20 03:13 Temperature Source Tympanic 03/06/20 09:37 Pulse 96 H 03/06/20 09:37 Pulse Rhythm Regular 03/06/20 03:47 Respiratory Rate 18 03/06/20 09:37 Respiratory Effort Non-Labored 03/06/20 03:47 Respiratory Depth Normal 03/06/20 03:47 Respiratory Pattern Normal 03/06/20 03:47 Blood Pressure 162/103 H 03/06/20 09:37 Pulse Oximetry 96 03/06/20 09:37 Oxygen Delivery Method Room Air 03/06/20 09:37 Oxygen Flow Rate 0 03/06/20 09:37 Pain Level 8 03/06/20 11:49 Intake & Output 03/05/20 03/06/20 03/06/20 23:59 11:59 23:59 Intake Total 1525 / 1525 260 / 310 50 / 310 Output Total 1399 Balance 125 / -475 260 / 310 50 / 310 Intake: IV 1045 / 1045 70 50 / 70 Oral 480 / 480 240 / 240 Output: Urine 1399 Other: Urine Color Yellow Yellow Urine Appearance Clear Clear Urine Odor None Voiding Methods Toilet Toilet Laboratory Results WBC 20.78 k/cumm (4.4-10.8) H D 03/06/20 06:30 RBC 4.60 m/cumm (4.50-6.00) 03/06/20 06:30 Hgb 13.4 g/dL (13.5-17.5) L 03/06/20 06:30 Hct 37.8 % (40.0-50.0) L 03/06/20 06:30 MCV 82.2 fL (80-95) 03/06/20 06:30 MCH 29.1 pg (27.0-33.0) 03/06/20 06:30 MCHC 35.4 g/dL (32.0-36.0) 03/06/20 06:30 RDW 13.1 % (11.8-14.1) 03/06/20 06:30 Plt Count 389 x1000/uL (130-400) 03/06/20 06:30 MPV 9.8 fL (8.0-11.0) 03/06/20 06:30 Immature Gran % See Differential 03/06/20 06:30 Neutrophils % 55.0 03/06/20 06:30 Band Neutrophils % 14.0 % 03/06/20 06:30 Lymphocytes % 18.0 03/06/20 06:30 Atypical Lymphs % 1 03/06/20 06:30 Monocytes % 4.0 03/06/20 06:30 Eosinophils % 0.0 03/06/20 06:30 Basophils % 0.0 03/06/20 06:30 Metamyelocytes % 3.0 % 03/06/20 06:30 Myelocytes % 5.0 % 03/06/20 06:30 Absolute Neutrophils 14.34 k/cumm (1.2-6.7) H 03/06/20 06:30 Absolute Lymphocytes 3.95 k/cumm (1.2-3.4) H 03/06/20 06:30 Absolute Monocytes 0.83 k/cumm (0.11-0.7) H 03/06/20 06:30 Absolute Eosinophils 0.00 k/cumm (0.0-0.7) 03/06/20 06:30 Absolute Basophils 0.00 k/cumm (0.0-0.2) 03/06/20 06:30 Differential Comment Manual differential 03/06/20 06:30 RBC Morphology See below 03/06/20 06:30 Polychromasia Present 03/06/20 06:30 Sodium 131 mmol/L (136-145) L 03/06/20 06:30 Potassium 3.9 mmol/L (3.5-5.1) D 03/06/20 06:30 Chloride 92 mmol/L (98-107) L 03/06/20 06:30 Carbon Dioxide 30.9 mmol/L (21.0-32.0) 03/06/20 06:30 Anion Gap 8.1 mmol/L (3-11) 03/06/20 06:30 BUN 21 mg/dL (7-18) H D 03/06/20 06:30 Creatinine 0.82 mg/dL (0.70-1.30) 03/06/20 06:30 Estimated GFR/1.73 m2 >= 60.00 (mL/min/1.73m2) 03/06/20 06:30 Glucose 342 mg/dL (74-106) H D 03/06/20 06:30 Hemoglobin A1c 13.3 % (3.8-5.6) H 03/06/20 06:30 Calcium 8.8 mg/dL (8.5-10.1) 03/06/20 06:30 Magnesium 1.7 mg/dL (1.8-2.4) L 03/06/20 06:30 Total Bilirubin 0.2 mg/dL (0.2-1.0) 03/06/20 06:30 AST 11 U/L (15-37) L 03/06/20 06:30 ALT 14 U/L (16-63) L 03/06/20 06:30 Alkaline Phosphatase 153 U/L (46-116) H 03/06/20 06:30 Total Protein 6.5 g/dL (6.4-8.2) 03/06/20 06:30 Albumin 2.0 g/dL (3.4-5.0) L 03/06/20 06:30 Triglycerides 742 mg/dL (<150) H 03/06/20 06:30 Total Cholesterol 296 mg/dL (<200) H 03/06/20 06:30 LDL Cholesterol Direct 94 mg/dL (<100) 03/06/20 06:30 LDL Cholesterol, Calc Tnp mg/dL (<100) 03/06/20 06:30 HDL Cholesterol 17 mg/dL (40-60) L 03/06/20 06:30 Ur Creatinine mg/dL 67.07 mg/dL 03/05/20 17:01 Ur Microalbumin mg/L 24.6 mg/L (1.30-20.0) H 03/05/20 17:01 Microalb/Creat Ratio 36.7 ug/mg Cr 03/05/20 17:01
--- NOTE | 2020-03-06 13:38 | W.NUTCONSULT ---
Date of service: 03/06/20 Time of Service: 13:38 Nutritional Consult ASSESSMENT: 49 year old male admitted with infected sebaceous cyst (now with wound vac) and newly diagnosed type 2 diabetic. Hx of smoking 1 pack per day > 20 years. Does not drink ETOH. Reports cutting out soda a couple of years ago and able to lose >50 lbs. Meds include insulin, however, most likely will discharge on metformin. BMI indicates class 1 obesity. Labs indicate poorly controlled diabetes (A1c: 13.3%), elevated cholesterol, low HDL, elevated triglycerides and liver enzymes. Nutrition Consult for diabetes education received. Met with Evan lozada and reviewed principles of diabetes and weight management. Provided education material: Medical Nutrition Therapy for Type 2 Diabetes. Provided my contact information and referred him to outpatient diabetes counseling with [facility]. Also reviewed ways to lower serum lipid levels. Receptive to education. NUTRITIONAL DIAGNOSIS: Poorly Controlled Type 2 Diabetes obesity hyperlipidemia, hypertriglyceridemia INTERVENTION: Medical Nutrition Therapy on Type 2 Diabetes and elevated lipids MONITORING AND EVALUATION: weight,po intake, labs Time Spent in Nutritional Counseling and Treatment: 30 min spent face to face
[2020-03-06] MEDS: MAGNESIUM SULFATE 2 GM/50 ML BAG IVPB (14:56)
[2020-03-06 15:44] VITALS: BP 156/88; PULSE 85; RESP 18; TEMP 36.8; O2SAT 96
[2020-03-06] MEDS: Atorvastatin 40 MG TAB PO (20:17)
[2020-03-06 20:28] VITALS: BP 156/92; PULSE 81; RESP 18; TEMP 36; O2SAT 93
[2020-03-06] MEDS: Insulin Glargine 300 UNITS/3 ML PEN 25 UNITS SC (21:37)
[2020-03-07] MEDS: HYDROcodone 5/Acetaminophen 325 TAB PO ×4 (00:58→22:49)
[2020-03-07 01:00] VITALS: BP 138/86; PULSE 73; RESP 18; TEMP 36; O2SAT 93
[2020-03-07] MEDS: Normal Saline Flush 10 ML SYR IVP ×6 (01:10→18:18)
[2020-03-07] MEDS: HYDROmorphone 2 MG/ML VIAL 1 MG IVP (05:23)
[2020-03-07 07:14] LABS: Abs Immature Grans 1.36 k/cumm (0.0-0.09); HCT 36.4 % (40.0-50.0); HGB 12.6 g/dL (13.5-17.5); Mean Corp. HGB Concentration 34.6 g/dL (32.0-36.0); Mean Corpuscular Hemoglobin 28.9 pg (27.0-33.0); Mean Corpuscular Volume 83.5 fL (80-95); Mean Platelet Volume 9.6 fL (8.0-11.0); Platelet Count 352 x1000/uL (130-400); RBC 4.36 m/cumm (4.50-6.00); RBC Distribution Width 13.1 % (11.8-14.1); White Blood Cell Count 13.96 k/cumm (4.4-10.8)
[2020-03-07 07:20] LABS: Uric Acid 7.9 mg/dL (3.5-7.2)
[2020-03-07 07:29] LABS: Absolute Eosinophil Count 0.14 k/cumm (0.0-0.7); Absolute Lymphocyte Count 4.05 k/cumm (1.2-3.4); Absolute Monocyte Count 0.84 k/cumm (0.11-0.7); Absolute Neutrophil Count 8.93 k/cumm (1.2-6.7); Diff Comment Manual Differential
[2020-03-07 07:58] VITALS: BP 154/107; PULSE 76; RESP 17; TEMP 35.5; O2SAT 96
[2020-03-07] MEDS: metFORMIN 500 MG TAB PO ×2 (08:07→16:30)
[2020-03-07] MEDS: Insulin Aspart 300 UNITS/3 ML PEN SC ×3 (08:10→17:18)
--- NOTE | 2020-03-07 09:14 | W.PM.PROGNOT ---
Documented by User: CHERELLE Rojas 03/07/20 09:17 Date of Service Date of service: 03/07/20 Time of Service: 09:14 Assessment and Plan Assessment and plan (1) Abscess: Status: Acute Assessment and plan: A/P: Wound vac in place. Patient is tolerating this well, with mild discomfort. WBC has decreased today to 13.96 which is reassuring. Encouraged ambulation and activities OOB throughout the day. (2) Type 2 diabetes mellitus: Status: Acute Assessment and plan: Continue with diabetic education. Qualifiers: Diabetes mellitus complication status: with hyperglycemia Diabetes mellitus extermination supervisor insulin use: without extermination supervisor use Qualified Code(s): E11.65 - Type 2 diabetes mellitus with hyperglycemia (3) DVT prophylaxis: Status: Acute Subjective Subjective Interval history since last seen: I am doing okay. He denies any pain at this time. He expresses excitement that his WBC is decreasing. Exam Const General: cooperative, healthy appearing and comfortable Orientation: alert and oriented x3 Resp Effort & Inspection: normal respiratory effort, no audible wheezes and no cough Skin Other: Posterior neck wound- Wound vac in place. Objective Objective Clinical Data: Abnormal lab results 03/07/20 03/07/20 Range/Units 06:45 06:45 WBC 13.96 H D (4.4-10.8) k/cumm RBC 4.36 L (4.50-6.00) m/cumm Hgb 12.6 L (13.5-17.5) g/dL Hct 36.4 L (40.0-50.0) % Absolute Neutrophils 8.93 H (1.2-6.7) k/cumm Absolute Lymphocytes 4.05 H (1.2-3.4) k/cumm Absolute Monocytes 0.84 H (0.11-0.7) k/cumm Uric Acid 7.9 H (3.5-7.2) mg/dL Vital Signs Temperature 35.5 C L 03/07/20 07:58 Temperature Source Tympanic 03/07/20 07:58 Pulse 76 03/07/20 07:58 Pulse Rhythm Regular 03/07/20 08:41 Respiratory Rate 17 03/07/20 07:58 Respiratory Effort 03/07/20 08:41 Respiratory Depth Normal 03/07/20 08:41 Respiratory Pattern Normal 03/07/20 00:52 Blood Pressure 154/107 H 03/07/20 07:58 Pulse Oximetry 96 03/07/20 07:58 Oxygen Delivery Method Room Air 03/07/20 07:58 Oxygen Flow Rate 0 03/07/20 07:58 Pain Level 4 03/07/20 08:38 Comment 03/07/20 07:58 Intake & Output 03/06/20 03/07/20 03/07/20 18:59 06:59 18:59 Intake Total 1040 / 2590 1550 / 2590 Output Total 0 / 0 Balance 1040 / 2590 1550 / 2590 Intake: IV 560 / 1560 1000 / 1560 Oral 480 / 1030 550 / 1030 Output: Output, Wound Vac (mls) 0 / 0 Other: Urine Appearance Clear Comment per patient voided in the toilet Laboratory Results WBC 13.96 k/cumm (4.4-10.8) H D 03/07/20 06:45 RBC 4.36 m/cumm (4.50-6.00) L 03/07/20 06:45 Hgb 12.6 g/dL (13.5-17.5) L 03/07/20 06:45 Hct 36.4 % (40.0-50.0) L 03/07/20 06:45 MCV 83.5 fL (80-95) 03/07/20 06:45 MCH 28.9 pg (27.0-33.0) 03/07/20 06:45 MCHC 34.6 g/dL (32.0-36.0) 03/07/20 06:45 RDW 13.1 % (11.8-14.1) 03/07/20 06:45 Plt Count 352 x1000/uL (130-400) 03/07/20 06:45 MPV 9.6 fL (8.0-11.0) 03/07/20 06:45 Immature Gran % 0.0 % 03/07/20 06:45 Neutrophils % 64.0 03/07/20 06:45 Band Neutrophils % 14.0 % 03/06/20 06:30 Lymphocytes % 29.0 03/07/20 06:45 Atypical Lymphs % 1 03/06/20 06:30 Monocytes % 6.0 03/07/20 06:45 Eosinophils % 1.0 03/07/20 06:45 Basophils % 0.0 03/07/20 06:45 Metamyelocytes % 3.0 % 03/06/20 06:30 Myelocytes % 5.0 % 03/06/20 06:30 Absolute Neutrophils 8.93 k/cumm (1.2-6.7) H 03/07/20 06:45 Absolute Lymphocytes 4.05 k/cumm (1.2-3.4) H 03/07/20 06:45 Absolute Monocytes 0.84 k/cumm (0.11-0.7) H 03/07/20 06:45 Absolute Eosinophils 0.14 k/cumm (0.0-0.7) 03/07/20 06:45 Absolute Basophils 0.00 k/cumm (0.0-0.2) 03/07/20 06:45 Differential Comment Manual differential 03/07/20 06:45 RBC Morphology See below 03/06/20 06:30 Polychromasia Present 03/06/20 06:30 Sodium 131 mmol/L (136-145) L 03/06/20 06:30 Potassium 3.9 mmol/L (3.5-5.1) D 03/06/20 06:30 Chloride 92 mmol/L (98-107) L 03/06/20 06:30 Carbon Dioxide 30.9 mmol/L (21.0-32.0) 03/06/20 06:30 Anion Gap 8.1 mmol/L (3-11) 03/06/20 06:30 BUN 21 mg/dL (7-18) H D 03/06/20 06:30 Creatinine 0.82 mg/dL (0.70-1.30) 03/06/20 06:30 Estimated GFR/1.73 m2 >= 60.00 (mL/min/1.73m2) 03/06/20 06:30 Glucose 342 mg/dL (74-106) H D 03/06/20 06:30 Hemoglobin A1c 13.3 % (3.8-5.6) H 03/06/20 06:30 Uric Acid 7.9 mg/dL (3.5-7.2) H 03/07/20 06:45 Calcium 8.8 mg/dL (8.5-10.1) 03/06/20 06:30 Magnesium 1.7 mg/dL (1.8-2.4) L 03/06/20 06:30 Total Bilirubin 0.2 mg/dL (0.2-1.0) 03/06/20 06:30 AST 11 U/L (15-37) L 03/06/20 06:30 ALT 14 U/L (16-63) L 03/06/20 06:30 Alkaline Phosphatase 153 U/L (46-116) H 03/06/20 06:30 Total Protein 6.5 g/dL (6.4-8.2) 03/06/20 06:30 Albumin 2.0 g/dL (3.4-5.0) L 03/06/20 06:30 Triglycerides 742 mg/dL (<150) H 03/06/20 06:30 Total Cholesterol 296 mg/dL (<200) H 03/06/20 06:30 LDL Cholesterol Direct 94 mg/dL (<100) 03/06/20 06:30 LDL Cholesterol, Calc Tnp mg/dL (<100) 03/06/20 06:30 HDL Cholesterol 17 mg/dL (40-60) L 03/06/20 06:30 Ur Creatinine mg/dL 67.07 mg/dL 03/05/20 17:01 Ur Microalbumin mg/L 24.6 mg/L (1.30-20.0) H 03/05/20 17:01 Microalb/Creat Ratio 36.7 ug/mg Cr 03/05/20 17:01 Documented by User: Tabatha Fisher MD 03/07/20 10:03
[2020-03-07 09:42] LABS: Vancomycin, Trough 15.4 ug/mL (10.0-20.0)
--- NOTE | 2020-03-07 10:13 | PHA.REVIEW ---
Pharmacy Admission Review - Admission Clinical Review (Last Updated 03/06/20 @ 13:24 by Santana Yeung) Hypertriglyceridemia (Acute) DVT prophylaxis (Acute) Smoker (Acute) Rash (Acute) Type 2 diabetes mellitus (Acute) Abscess (Acute) oxycodone [Oxycodone] Allergy (Mild, Unverified 03/04/20 11:26) skin rash Height 5 ft 9 in Weight 95.254 kg - Renal Dosing Renal Dosing: BUN 21 mg/dL (7-18) H D 03/06/20 06:30 Creatinine 0.82 mg/dL (0.70-1.30) 03/06/20 06:30 Medications needing adjustments: Reviewed (CrCl ~106 ml/min -- no adjustments needed) - Anticoagulation Anticoagulation: Hgb 12.6 g/dL (13.5-17.5) L 03/07/20 06:45 Hct 36.4 % (40.0-50.0) L 03/07/20 06:45 Plt Count 352 x1000/uL (130-400) 03/07/20 06:45 Creatinine 0.82 mg/dL (0.70-1.30) 03/06/20 06:30 DVT Prohphylaxis: Reviewed Medications: Enoxaparin - Opiate Usage Evaluate Pain Scale/Pains Meds: Reviewed Scheduled Bowel Reg ordered if on Opiates?: Yes ([id number] daily) - Relevant Labs Sodium 131 mmol/L (136-145) L 03/06/20 06:30 Potassium 3.9 mmol/L (3.5-5.1) D 03/06/20 06:30 Chloride 92 mmol/L (98-107) L 03/06/20 06:30 Magnesium 1.7 mg/dL (1.8-2.4) L 03/06/20 06:30 Electrolytes, C-Reactive P, ESR: Reviewed (replaced wth 2g MAG) - DM Control DM Control: Glucose 342 mg/dL (74-106) H D 03/06/20 06:30 Hemoglobin A1c 13.3 % (3.8-5.6) H 03/06/20 06:30 Finger Stick Blood Glucose 264 Insulin Dosing: Reviewed (Aspart per SS before meals + glargine 25 U at bedtime) - BP Control BP Control: Blood Pressure 154/107 Blood Pressure 138/86 If elevated: Reviewed (MD is aware of elevated BPs -- will ask h/h to monitor) - Qtc Review If Elevated: Reviewed - IV to PO Switch IV Medications: Reviewed (day 2 abx... will switch to PO by tomorrow per AM report) - Home Meds Home Med List reviewed: Reviewed (No BP meds...) - Current meds Current Medication Order Review: Reviewed - Comments Comments/Follow Ups: Patient previously in uninsured but CM working on getting coverage started today -- if able then get wound vac tomorrow and dc home with h/h
[2020-03-07] MEDS: cefTRIAXone 1 GM/50 ML BAG IVPB (10:39)
--- NOTE | 2020-03-07 10:45 | PDOC.HHF2F_ITS ---
Home Health Certification Home Health Certification: 1. Encounter Date and Reason I certify that OLIVE KLEIN was seen by Tabatha Fisher MD on 03/07/20 and that I had a [id number] encounter with this patient that meets the physician face to face encounter requirements. 2. Clinical Findings Supporting Skilled Need and Homebound Status I certify that home health services are medically necessary, include either intermittent correction and/or physical/speech therapy, and that this pat ient is homebound in that absences from the home require considerable and taxing effort and are infrequent or of short duration, or are attributable to the need to receive medical care. [X] (a) Attached documentation from encounter provides clinical findings supporting skilled need and homebound status (including what assistance patient requires to leave the home). The encounter with the patient was in whole, or in part, for the following medical condition, which is the primary reason for home health care: BACK/NECK ABSCESS Nursing Home: Patient has a wound vac. Will need to be changed MWF Patient is a newly diagnosed Diabetic and needs some help with monitoring Patient's BP being monitored for possible HTN as well will need nursing to monitor when they come to change dressing assisted needed to monitor patients new medical condition, instruct on medication regimen and signs and symptoms to report. Patient is at risk of decompensation and/or adverse events due to recent hospitalization Physical Therapy: Speech Therapy: Homebound: Leaving home is medically contraindicated due to High Risk of infection 3. Certification and Authentication I certify that I composed the above information based on my clinical judgement relating to this patient's medical condition and, if applicable, clinical findings communicated to me by the NPP or inpatient physician who performed the Home Health Referral. All further orders will be obtained through Uvaldo Fisher MD (Community Based Physician - PCP)
--- NOTE | 2020-03-07 11:04 | PGE_ITS ---
Date of Service Date of service: 03/07/20 Time of Service: 11:04 Assessment and Plan Assessment and plan (1) Type 2 diabetes mellitus: Status: Acute Assessment and plan: Patient's history of polyuria, polydipsia, and weight loss along with his hyperglycemia well above 200 is enough to give him the diagnosis of diabetes mellitus. A1c 13.3 confirms poorly controlled diabetes. Increasing basal insulin dosing, along with scheduled bolus insulin on top of sliding scale insulin and metformin. We will have him meet with diabetes educator as well. We did discuss possibility of using GLP-1 agonist that is a weekly injection to complement his therapy and improve metabolic status. Care management thinks he would qualify for good insurance coverage so plan to start this upon discharge. Short-term, our goal is to use insulin to get the blood sugar at least below 200 so that we will not have detrimental effects on healing. Qualifiers: Diabetes mellitus exterminator termite insulin use: without fci use Diabetes mellitus complication status: with hyperglycemia Qualified Code(s): E11.65 - Type 2 diabetes mellitus with hyperglycemia (2) Rash: Status: Acute Assessment and plan: Chronic skin rash, distribution possibly consistent with cholesterol deposits, though not typically appearing. Lipids do not show high LDL. I think these may be small tophaceous collections. Uric acid is elevated. May consider punch biopsy, but this could be done as an outpatient. No change (3) Smoker: Status: Acute Assessment and plan: Patient now planning to quit smoking. He thinks he will need to save money to buy his medication. I congratulated him on that decision. We discussed options to help him medically in addition to nicotine replacement therapy. Continue Nicotrol inhaler for now. (4) Abscess: Status: Acute Assessment and plan: Improving with decreased white count with addition of vancomycin.. Unfortunately the initial culture is not growing anything, but he could have gotten a new staph infection after the initial I&D, and clinical course is consistent with MRSA. Doing well with wound VAC. I discussed with Dr. Fisher, and I think Bactrim would be a good choice when he is due addition to oral antibiotics. Plan is discharge tomorrow on Bactrim. (5) Hypertension: Status: Chronic Assessment and plan: Blood pressure continues high. Urine Microalbumin/creatinine ratio is elevated. Will start COURTNEY inhibitor. (6) Hypertriglyceridemia: Status: Acute Assessment and plan: Given his overall cardiac risk, he was started on high intensity statin. Lipids can repeated as an outpatient in 6 weeks to see if he is at goal at least under 500. Statin will also decrease his cardiac ri sk. (7) DVT prophylaxis: Status: Acute Assessment and plan: Lovenox. Subjective Subjective Patient reports: no new complaints; denies diarrhea, nausea and shortness of breath Interval history since last seen: However states he is feeling well. He feels slightly cloudy headed at times, which he attributes to his blood sugars going down after being very elevated. He denies feeling like he would pass out or getting shaky. He has felt feverish for short periods of time, but no overt fever documented. He now feels like he can quit smoking, and is using Nicotrol to get him over the hump. Exam Narrative Exam Narrative: General: Alert and oriented x3, friendly, no acute distress HEENT: Moist mucous membranes, normal range of motion neck. Lungs: Clear to auscultation bilaterally normal effort Cardiovascular: Regular rate and rhythm with no murmurs gallops or rubs. Abdomen: Active bowel sounds, soft, nontender nondistended. Extremities: No cyanosis clubbing or edema. Nontender to palpation legs. Skin: wound VAC over wound upper back. Clusters of firm pink papules, many with white tissue centrally that looks like a pustule, but is firm, of some of these lesions coalescing into nodular plaques, on extensor elbow and knees (no change). Objective Objective Clinical Data: Abnormal lab results 03/07/20 03/07/20 Range/Units 06:45 06:45 WBC 13.96 H D (4.4-10.8) k/cumm RBC 4.36 L (4.50-6.00) m/cumm Hgb 12.6 L (13.5-17.5) g/dL Hct 36.4 L (40.0-50.0) % Absolute Neutrophils 8.93 H (1.2-6.7) k/cumm Absolute Lymphocytes 4.05 H (1.2-3.4) k/cumm Absolute Monocytes 0.84 H (0.11-0.7) k/cumm Uric Acid 7.9 H (3.5-7.2) mg/dL Vital Signs Temperature 35.5 C L 03/07/20 07:58 Temperature Source Tympanic 03/07/20 07:58 Pulse 76 03/07/20 07:58 Pulse Rhythm Regular 03/07/20 08:41 Respiratory Rate 17 03/07/20 07:58 Respiratory Effort 03/07/20 08:41 Respiratory Depth Normal 03/07/20 08:41 Respiratory Pattern Normal 03/07/20 00:52 Blood Pressure 154/107 H 03/07/20 07:58 Pulse Oximetry 96 03/07/20 07:58 Oxygen Delivery Method Room Air 03/07/20 07:58 Oxygen Flow Rate 0 03/07/20 07:58 Pain Level 4 03/07/20 08:38 Comment 03/07/20 07:58 Intake & Output 03/06/20 03/06/20 03/07/20 11:59 23:59 11:59 Intake Total 260 / 2040 1780 / 2040 800 / 800 Output Total 0 / 0 Balance 260 / 2040 1780 / 2040 800 / 800 Intake: IV 20 / 1320 1300 / 1320 250 / 250 Oral 240 / 720 480 / 720 550 / 550 Output: Output, Wound Vac (mls) 0 / 0 Other: Urine Color Yellow Urine Appearance Clear Clear Urine Odor None Comment per patient voided in the toilet Voiding Methods Toilet Laboratory Results WBC 13.96 k/cumm (4.4-10.8) H D 03/07/20 06:45 RBC 4.36 m/cumm (4.50-6.00) L 03/07/20 06:45 Hgb 12.6 g/dL (13.5-17.5) L 03/07/20 06:45 Hct 36.4 % (40.0-50.0) L 03/07/20 06:45 MCV 83.5 fL (80-95) 03/07/20 06:45 MCH 28.9 pg (27.0-33.0) 03/07/20 06:45 MCHC 34.6 g/dL (32.0-36.0) 03/07/20 06:45 RDW 13.1 % (11.8-14.1) 03/07/20 06:45 Plt Count 352 x1000/uL (130-400) 03/07/20 06:45 MPV 9.6 fL (8.0-11.0) 03/07/20 06:45 Immature Gran % 0.0 % 03/07/20 06:45 Neutrophils % 64.0 03/07/20 06:45 Band Neutrophils % 14.0 % 03/06/20 06:30 Lymphocytes % 29.0 03/07/20 06:45 Atypical Lymphs % 1 03/06/20 06:30 Monocytes % 6.0 03/07/20 06:45 Eosinophils % 1.0 03/07/20 06:45 Basophils % 0.0 03/07/20 06:45 Metamyelocytes % 3.0 % 03/06/20 06:30 Myelocytes % 5.0 % 03/06/20 06:30 Absolute Neutrophils 8.93 k/cumm (1.2-6.7) H 03/07/20 06:45 Absolute Lymphocytes 4.05 k/cumm (1.2-3.4) H 03/07/20 06:45 Absolute Monocytes 0.84 k/cumm (0.11-0.7) H 03/07/20 06:45 Absolute Eosinophils 0.14 k/cumm (0.0-0.7) 03/07/20 06:45 Absolute Basophils 0.00 k/cumm (0.0-0.2) 03/07/20 06:45 Differential Comment Manual differential 03/07/20 06:45 RBC Morphology See below 03/06/20 06:30 Polychromasia Present 03/06/20 06:30 Sodium 131 mmol/L (136-145) L 03/06/20 06:30 Potassium 3.9 mmol/L (3.5-5.1) D 03/06/20 06:30 Chloride 92 mmol/L (98-107) L 03/06/20 06:30 Carbon Dioxide 30.9 mmol/L (21.0-32.0) 03/06/20 06:30 Anion Gap 8.1 mmol/L (3-11) 03/06/20 06:30 BUN 21 mg/dL (7-18) H D 03/06/20 06:30 Creatinine 0.82 mg/dL (0.70-1.30) 03/06/20 06:30 Estimated GFR/1.73 m2 >= 60.00 (mL/min/1.73m2) 03/06/20 06:30 Glucose 342 mg/dL (74-106) H D 03/06/20 06:30 Hemoglobin A1c 13.3 % (3.8-5.6) H 03/06/20 06:30 Uric Acid 7.9 mg/dL (3.5-7.2) H 03/07/20 06:45 Calcium 8.8 mg/dL (8.5-10.1) 03/06/20 06:30 Magnesium 1.7 mg/dL (1.8-2.4) L 03/06/20 06:30 Total Bilirubin 0.2 mg/dL (0.2-1.0) 03/06/20 06:30 AST 11 U/L (15-37) L 03/06/20 06:30 ALT 14 U/L (16-63) L 03/06/20 06:30 Alkaline Phosphatase 153 U/L (46-116) H 03/06/20 06:30 Total Protein 6.5 g/dL (6.4-8.2) 03/06/20 06:30 Albumin 2.0 g/dL (3.4-5.0) L 03/06/20 06:30 Triglycerides 742 mg/dL (<150) H 03/06/20 06:30 Total Cholesterol 296 mg/dL (<200) H 03/06/20 06:30 LDL Cholesterol Direct 94 mg/dL (<100) 03/06/20 06:30 LDL Cholesterol, Calc Tnp mg/dL (<100) 03/06/20 06:30 HDL Cholesterol 17 mg/dL (40-60) L 03/06/20 06:30 Ur Creatinine mg/dL 67.07 mg/dL 03/05/20 17:01 Ur Microalbumin mg/L 24.6 mg/L (1.30-20.0) H 03/05/20 17:01 Microalb/Creat Ratio 36.7 ug/mg Cr 03/05/20 17:01 Vancomycin Trough 15.4 ug/mL (10.0-20.0) 03/07/20 09:15
[2020-03-07] MEDS: Ketorolac 30 MG/ML VIAL IVP (11:24)
--- NOTE | 2020-03-07 13:23 | DSE_ITS ---
Documented by User: Tabatha Fisher MD 03/11/20 06:44 Date of service: 03/08/20 DS: Diagnosis Discharge Diagnosis (1) Type 2 diabetes mellitus: Status: Acute (2) Rash: Status: Acute (3) Smoker: Status: Acute (4) Abscess: Status: Acute (5) Hypertension: Status: Chronic (6) Hypertriglyceridemia: Status: Acute (7) DVT prophylaxis: Status: Acute Discharge Plan Disposition Patient Disposition: HOME W/HOME HEALTH SERVICE Condition: Improving Discharge Details Reason For Visit: BACK/NECK ABSCESS Admit Date/Time: 03/05/20 08:43 Admit Provider: Tabatha Fisher Attending Provider: Tabatha Fisher Primary Care Provider: Arsen Arreola Hospital Course Hospital Course: Mr. Martinez is a pleasant 49-year-old gentleman who was seen in the emergency department on Wednesday03/03/20 with erythema in his upper back. I&D was done by the ER physician. The wound was packed and he was then referred to our office. He was seen yesterday by Dr. Hernandez who changed the packing and gave him 1 dose of IV Rocephin. Patient is back today and has increased erythema going all the way up his neck to just under his occipital bone. There is increased tenderness and fluctuance. The dressing that was over the wound is soaked in purulent discharge. The packing is removed and there is more purulent fluid draining. The patient denies fevers. Due to the severity of the infection and the fact that it was still draining so much he was taken to the Operating room for a incision and drainage of a large 10 x10 x4 cm abscess that went from his upper back to just below his occipital bone and down to the trapezius muscle. The wound was irrigated and packed. He was continued on Rocephin. On admission CBC noted a Glucose of 455. The next day his wound looked good but his WBC count had increased to 20,000. Unfortunately the cultures done in the ER did not grow any bacteria. The patient was started on Vancomycin to cover for possible MRSA. A wound vac was applied to help with granulation tissue. Fasting labs the next morning showed a HgA1c of 13.3%, Triglycerides of >700. He also was noted to have some high BP. Hospitalist consult was requested and they started him on Metformin, insulin (lantus 35 units QHS), a statin and an COURTNEY inhibitor. BG's are now<200. He will need to have diabetes education as outpatient - referral was sent. He quit smoking and cravings were managed with Nicotrol inhaler. He was confident he could remain smoke-free upon discharge. Care Management was consulted as the patient has no insurance. He applied for insurance. Request for a home wound vac from [facility] was sent. Patient is discharged with a wound vac, and multiple new medications for h ypertriglyceridemia, Diabetes, and Hypertension. He is also send home on a 14 day course of Bactrim and keflex. Home Meds and New Rx's Prescriptions: New Floranex 100 million cell Granules In Packet 1 packet PO BID Qty: 60 RF: 1 atorvastatin [Lipitor] 40 mg Tablet 40 mg PO QPM Qty: 30 RF: 5 lisinopril 10 mg Tablet 10 mg PO DAILY Qty: 30 RF: 5 metformin 500 mg Tablet 500 mg PO BID@0800,1700 Qty: 60 RF: 5 sulfamethoxazole-trimethoprim [Bactrim DS] 800-160 mg tablet 1 tab PO BID Qty: 28 RF: 0 cephalexin [Keflex] 500 mg capsule 500 mg PO Q8H Qty: 42 RF: 0 Lantus Solostar U-100 Insulin 100 unit/mL (3 mL) insulin pen 35 unit SC HS Qty: 15 RF: 0 (DME) blood-glucose meter Kit See Rx Instructions .ROUTE .MEDSUPPLY Qty: 1 RF: 0 (DME) blood sugar diagnostic Strip See Rx Instructions .ROUTE .MEDSUPPLY Qty: 100 RF: 0 (DME) lancets Misc See Rx Instructions .ROUTE .MEDSUPPLY Qty: 100 RF: 0 (DME) Novofine Autocover 30 gauge x 1/3 needle See Rx Instructions .ROUTE .MEDSUPPLY Qty: 100 RF: 0 Continued ibuprofen 200 mg tablet 400 mg PO Q6H PRNRF: 0 acetaminophen [Tylenol] 325 mg capsule 650 mg PO ONCE PRNRF: 0 hydrocodone-acetaminophen 5-325 mg tablet 1 tab PO Q4H MDD 6 PRN (Reason: pain) Qty: 20 RF: 0 Discontinued amoxicillin-pot clavulanate 875-125 mg tablet 1 tab PO BID 10 Days Qty: 20 RF: 0 Discharge Instructions Additional Instructions: Activity at Home after surgery: 1. Make sure you walk outside at least 4 times per day 2. You should be able to climb a flight of stairs Diet, Nutrition, & wound healin. Follow a diabetic and low fat diet as instructed by the institutional research director 2. Drink plenty of fluids 3. Eat yogurt or Kefir to encourage colon bacterial health. Pain Medications: 1. Alternate Tylenol 650 mg every 6 hours and Ibuprofen 600 mg every 6 hours 2. If a narcotic has been prescribed take as directed only for breakthrough pain For Constipation: 1. Take Milk of Magnesia or MiraLax as needed for constipation Other: 1. You may shower daily. Do not scrub the incisions 2. Do not soak the incisions for 1 week 3. You may alternate ice and heat as needed for pain and swelling Wound Care: 1. Keep the incisions clean and dry Other Services that may have been ordered: 1. Home Health- to help with dressing changes as well as to help monitor your blood sugars and Bp at the beginning Please call our office if you develop: 1. Fevers >101.5 2. Nausea or Vomiting 3. Worsening pain 4. Redness and thick discharge from the wounds If after hours please call the Hospital at and ask to speak to the on-call surgeon Stand Alone Forms: Nursing Discharge Form Referrals: Kellie Chan [VP SECURITIES] - (Diabetes education) Arsen Arreola [Primary Care Provider] - Tabatha Fisher MD [ [facility] STAFF PHYSICIAN] - (Call the office to make an appointment for 03/14) Activity:: Activity as Tolerated Equipment/Supplies:: wound vac Diet:: diabetic and low fat Discharge Orders Discharge Orders: Discharge Order (Routine); Ordered 03/10/20 Ordered By: Farrah Hanley Discharge Data Discharge Date/Time-TO BE ENTERED AT DEPARTURE: 03/10/20 16:45 DS: Data Vitals/I&O Vitals and I&O: Vital Signs Temperature 95.9 F L 03/07/20 07:58 Temperature Source Tympanic 03/07/20 07:58 Pulse 76 03/07/20 07:58 Pulse Rhythm Regular 03/07/20 08:41 Respiratory Rate 17 03/07/20 07:58 Respiratory Effort 03/07/20 08:41 Respiratory Depth Normal 03/07/20 08:41 Respiratory Pattern Normal 03/07/20 00:52 Blood Pressure 154/107 H 03/07/20 07:58 Pulse Oximetry 96 03/07/20 07:58 Oxygen Delivery Method Room Air 03/07/20 07:58 Oxygen Flow Rate 0 03/07/20 07:58 Pain Level 5 03/07/20 11:24 Comment 03/07/20 07:58 Intake & Output 03/06/20 03/07/20 03/07/20 23:59 11:59 23:59 Intake Total 1780 / 0 850 / 850 Output Total 0 / 0 Balance 1780 / 2040 850 / 850 Intake: IV 1300 / 1320 300 / 300 Oral 480 / 720 550 / 550 Output: Output, Wound Vac (mls) 0 / 0 Other: Urine Appearance Clear Comment per patient voided in the toilet Data Completed and Pending Labs on day of discharge: Labs from last 24 hours 03/07/20 03/07/20 03/07/20 09:15 06:45 06:45 WBC 13.96 H D RBC 4.36 L Hgb 12.6 L Hct 36.4 L MCV 83.5 MCH 28.9 MCHC 34.6 RDW 13.1 Plt Count 352 MPV 9.6 Immature Gran % 0.0 Neutrophils % 64.0 Lymphocytes % 29.0 Monocytes % 6.0 Eosinophils % 1.0 Basophils % 0.0 Absolute Neutrophils 8.93 H Absolute Lymphocytes 4.05 H Absolute Monocytes 0.84 H Absolute Eosinophils 0.14 Absolute Basophils 0.00 Differential Comment Manual differential Uric Acid 7.9 H Vancomycin Trough 15.4 PFSH Medical History (Updated 03/09/20 @ 11:46 by Fang Umana MD) Gout (Chronic) Hypertension (Chronic) Hypertriglyceridemia (Acute) Kidney stone (Chronic) Neck abscess (Acute) Rash (Acute) Smoker (Acute) Type 2 diabetes mellitus (Acute) Surgical History (Updated 03/07/20 @ 13:25 by Tabatha Fisher MD) Endoscopic Carpal Tunnel release (09/22/12) RIGHT Fracture, Open Treatment (09/22/12) ORIF PERILUNATE DILOCATION RIGHT. History of incision and drainage (Acute ~03/05/20) Family History (Updated 03/05/20 @ 15:50 by Santana Yeung) Paternal Grandmother Diabetes Father Diabetes Heart disease Social History (Updated 03/05/20 @ 15:52 by Santana Yeung) Smoking/Tobacco Use Status: Current every day Tobacco Type: cigarettes Alcohol Intake: never Drug use: Never Substance use type: does not use Do you feel safe at home: Yes Do you feel safe in your relationship?: Yes Additional Social history: This in [place] with a daughter and his grandchildren. Not currently . 5 adult children in total. 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 Documented by User: Farrah Hanley MD 03/10/20 15:18 Date of service: 03/10/20 Time of Service: 15:13 Discharge Plan Disposition Patient Disposition: HOME W/HOME HEALTH SERVICE Condition: Improving Discharge Details Reason For Visit: BACK/NECK ABSCESS Admit Date/Time: 03/05/20 08:43 Admit Provider: Tabatha Fisher Attending Provider: Tabatha Fisher Primary Care Provider: Arsen Arreola Hospital Course Hospital Course: Mr. Martinez is a pleasant 49-year-old gentleman who was seen in the emergency department on Wednesday03/03/20 with erythema in his upper back. I&D was done by the ER physician. The wound was packed and he was then referred to our office. He was seen yesterday by Dr. Hernandez who changed the packing and gave him 1 dose of IV Rocephin. Patient is back today and has increased erythema going all the way up his neck to just under his occipital bone. There is increased tenderness and fluctuance. The dressing that was over the wound is soaked in purulent discharge. The packing is removed and there is more purulent fluid draining. The patient denies fevers. Due to the severity of the infection and the fact that it was still draining so much he was taken to the Operating room for a incision and drainage of a large 10 x10 x4 cm abscess that went from his upper back to just below his occipital bone and down to the trapezius muscle. The wound was irrigated and packed. He was continued on Rocephin. On admission CBC noted a Glucose of 455. The next day his wound looked good but his WBC count had increased to 20,000. Unfortunately the cultures done in the ER did not grow any bacteria. The patient was started on Vancomycin to cover for possible MRSA. A wound vac was applied to help with granulation tissue. Fasting labs the next morning showed a HgA1c of 13.3%, Triglycerides of >700. He also was noted to have some high BP. Hospitalist consult was requested and they started him on Metformin, insulin (lantus 35 units QHS), a statin and an COURTNEY inhibitor. BG's are now<200. He will need to have diabetes education as outpatient - referral was sent. He quit smoking and cravings were managed with Nicotrol inhaler. He was confident he could remain smoke-free upon discharge. Care Management was consulted as the patient has no insurance. He applied for insurance. Request for a home wound vac from [facility] was sent. Patient is discharged with a wound vac, and multiple new medications for hypertriglyceridemia, Diabetes, and Hypertension. He is also send home on a 14 day course of Bactrim and keflex. Home Meds and New Rx's Prescriptions: New Floranex 100 million cell Granules In Packet 1 packet PO BID Qty: 60 RF: 1 atorvastatin [Lipitor] 40 mg Tablet 40 mg PO QPM Qty: 30 RF: 5 lisinopril 10 mg Tablet 10 mg PO DAILY Qty: 30 RF: 5 metformin 500 mg Tablet 500 mg PO BID@0800,1700 Qty: 60 RF: 5 sulfamethoxazole-trimethoprim [Bactrim DS] 800-160 mg tablet 1 tab PO BID Qty: 28 RF: 0 cephalexin [Keflex] 500 mg capsule 500 mg PO Q8H Qty: 42 RF: 0 Lantus Solostar U-100 Insulin 100 unit/mL (3 mL) insulin pen 35 unit SC HS Qty: 15 RF: 0 (DME) blood-glucose meter Kit See Rx Instructions .ROUTE .MEDSUPPLY Qty: 1 RF: 0 (DME) blood sugar diagnostic Strip See Rx Instructions .ROUTE .MEDSUPPLY Qty: 100 RF: 0 (DME) lancets Misc See Rx Instructions .ROUTE .MEDSUPPLY Qty: 100 RF: 0 (DME) Novofine Autocover 30 gauge x 1/3 needle See Rx Instructions .ROUTE .MEDSUPPLY Qty: 100 RF: 0 Continued ibuprofen 200 mg tablet 400 mg PO Q6H PRNRF: 0 acetaminophen [Tylenol] 325 mg capsule 650 mg PO ONCE PRNRF: 0 hydrocodone-acetaminophen 5-325 mg tablet 1 tab PO Q4H MDD 6 PRN (Reason: pain) Qty: 20 RF: 0 Discontinued amoxicillin-pot clavulanate 875-125 mg tablet 1 tab PO BID 10 Days Qty: 20 RF: 0 Discharge Instructions Additional Instructions: Activity at Home after surgery: 1. Make sure you walk outside at least 4 times per day 2. You should be able to climb a flight of stairs Diet, Nutrition, & wound healin. Follow a diabetic and low fat diet as instructed by the institutional research director 2. Drink plenty of fluids 3. Eat yogurt or Kefir to encourage colon bacterial health. Pain Medications: 1. Alternate Tylenol 650 mg every 6 hours and Ibuprofen 600 mg every 6 hours 2. If a narcotic has been prescribed take as directed only for breakthrough pain For Constipation: 1. Take Milk of Magnesia or MiraLax as needed for constipation Other: 1. You may shower daily. Do not scrub the incisions 2. Do not soak the incisions for 1 week 3. You may alternate ice and heat as needed for pain and swelling Wound Care: 1. Keep the incisions clean and dry Other Services that may have been ordered: 1. Home Health- to help with dressing changes as well as to help monitor your blood sugars and Bp at the beginning Please call our office if you develop: 1. Fevers >101.5 2. Nausea or Vomiting 3. Worsening pain 4. Redness and thick discharge from the wounds If after hours please call the Hospital at and ask to speak to the on-call surgeon Stand Alone Forms: Nursing Discharge Form Referrals: Kellie Chan [VP SECURITIES] - (Diabetes education) Arsen Arreola [Primary Care Provider] - Tabatha Fisher MD [ [facility] STAFF PHYSICIAN] - (Call the office to make an appointment for 03/14) Activity:: Activity as Tolerated Equipment/Supplies:: wound vac Diet:: diabetic and low fat Discharge Orders Discharge Orders: Discharge Order (Routine); Ordered 03/10/20 Ordered By: Farrah Hanley Discharge Data Discharge Date/Time-TO BE ENTERED AT DEPARTURE: 03/10/20 16:45 DS: Summary Status at Discharge Functional status at discharge: independent ambulation Overall status at discharge: patient is progressing back to baseline Mental Status: mental status grossly normal Speech and Movement: speech and movement normal Mood: congruent mood Affect: normal affect Exam Psych Mental Status: mental status grossly normal Speech and Movement: speech and movement normal Mood: congruent mood Affect: normal affect [facility] Medical History (Updated 03/09/20 @ 11:46 by Fang Umana MD) Gout (Chronic) Hypertension (Chronic) Hypertriglyceridemia (Acute) Kidney stone (Chronic) Neck abscess (Acute) Rash (Acute) Smoker (Acute) Type 2 diabetes mellitus (Acute) Surgical History (Updated 03/07/20 @ 13:25 by Tabatha Fisher MD) Endoscopic Carpal Tunnel release (09/22/12) RIGHT Fracture, Open Treatment (09/22/12) ORIF PERILUNATE DILOCATION RIGHT. History of incision and drainage (Acute ~03/05/20) Family History (Updated 03/05/20 @ 15:50 by Santana Yeung) Paternal Grandmother Diabetes Father Diabetes Heart disease Social History (Updated 03/05/20 @ 15:52 by Santana Yeung) Smoking/Tobacco Use Status: Current every day Tobacco Type: cigarettes Alcohol Intake: never Drug use: Never Substance use type: does not use Do you feel safe at home: Yes Do you feel safe in your relationship?: Yes Additional Social history: This in [place] with a daughter and his grandchildren. Not currently . 5 adult children in total. 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
[2020-03-07 13:56] VITALS: BP 157/98; PULSE 84; RESP 17; TEMP 36.5; O2SAT 95
--- NOTE | 2020-03-07 14:54 | PDOC.CMPRO ---
- If Service Date Differs Date of service: 03/07/20 Time of Service: 14:54 Care Management Progress Note S/O: Patrick was sitting up in bed when CM met with him. His provider was in the room also, reviewing his discharge plan. Per provider, he will need to be discharged home with a home wound vac, supplied by [facility]. He will also need new diabetic supplies and several new medications. Patrick currently does not have insurance. [facility] is working with [facility], trying to get him approved today. Per Louise at [facility], all items have been submitted including payment, and his application is being expedited, but we will not have an answer until tomorrow AM. CM contacted discharging provider to make sure they contact CM in the morning before he is discharged. CM also contacted [facility] to inform them of the delay. If his insurance is not in place, he will not be able to obtain the items he needs prior to discharge without paying full oro out of pocket. CM will contact [facility] in the AM to receive an update and move forward, amending the plan as needed. CM will continue to follow. A: Patrick is a 49 year old male admitted to [facility] on 03/05/20 with a back/neck abscess. P: Anticipate Patrick will return home with new orders for HH RN when medically cleared. He will need his new insurance in place prior to returning home. He will also have a new home wound vac, new diabetic supplies and new prescriptions. He will be driven home via private vehicle by family when ready. He will follow up with Surgery and his PCP, as recommended. CM will continue to follow.
[2020-03-07 16:08] VITALS: BP 158/100; PULSE 83; RESP 18; TEMP 36.4; O2SAT 93
[2020-03-07] MEDS: Acetaminophen 325 MG TAB 650 MG PO (16:29)
[2020-03-07] MEDS: Atorvastatin 40 MG TAB PO (19:32)
[2020-03-07] MEDS: Insulin Glargine 300 UNITS/3 ML PEN 30 UNITS SC (22:06)
[2020-03-07 23:17] VITALS: BP 142/91; PULSE 79; RESP 19; TEMP 36.7; O2SAT 94
[2020-03-08] MEDS: Normal Saline Flush 10 ML SYR IVP ×5 (01:53→20:07)
[2020-03-08] MEDS: Ketorolac 30 MG/ML VIAL IVP ×2 (01:54→21:34)
[2020-03-08] MEDS: HYDROcodone 5/Acetaminophen 325 TAB PO ×3 (03:10→18:50)
[2020-03-08 07:06] LABS: HGB 13.4 g/dL (13.5-17.5); Mean Corp. HGB Concentration 34.4 g/dL (32.0-36.0); Mean Corpuscular Hemoglobin 28.5 pg (27.0-33.0); Mean Platelet Volume 9.4 fL (8.0-11.0); Platelet Count 381 x1000/uL (130-400); RBC Distribution Width 13.3 % (11.8-14.1); White Blood Cell Count 13.95 k/cumm (4.4-10.8)
[2020-03-08 07:30] VITALS: BP 172/99; PULSE 76; RESP 19; TEMP 36.4; O2SAT 95
[2020-03-08 07:44] LABS: Absolute Lymphocyte Count 3.77 k/cumm (1.2-3.4); Absolute Neutrophil Count 9.07 k/cumm (1.2-6.7)
[2020-03-08 07:45] LABS: Diff Comment Manual Differential; RBC Morphology Normal
[2020-03-08] MEDS: HYDROmorphone 2 MG/ML VIAL 1 MG IVP ×2 (07:55→21:33)
[2020-03-08] MEDS: Insulin Aspart 300 UNITS/3 ML PEN SC ×3 (08:05→17:04)
[2020-03-08] MEDS: metFORMIN 500 MG TAB PO ×2 (08:31→17:05)
[2020-03-08] MEDS: Lisinopril 10 MG TAB PO (08:32)
[2020-03-08 09:27] LABS: Vancomycin, Trough 16.5 ug/mL (10.0-20.0)
[2020-03-08] MEDS: cefTRIAXone 1 GM/50 ML BAG IVPB (09:37)
--- NOTE | 2020-03-08 11:17 | PGE_ITS ---
Date of Service Date of service: 03/08/20 Time of Service: 11:18 Assessment and Plan Assessment and plan (1) Type 2 diabetes mellitus: Status: Acute Assessment and plan: Patient's history of polyuria, polydipsia, and weight loss along with his hyperglycemia above 200 consistent with diagnosis of diabetes mellitus. A1c 13.3 confirms poorly controlled diabetes. Increasing basal insulin dosing, along with scheduled bolus insulin on top of sliding scale insulin and metformin. Getting teaching on self administration. We did discuss possibility of using GLP-1 agonist that is a weekly injection to complement his therapy and improve metabolic status, awaiting insurance coverage at this point. It is imperative he get insurance coverage for his medications to avoid recurrence of profound hyperglycemia upon discharge. Short-term, our goal is to use insulin to get the blood sugar at least below 200 so that we will not have detrimental effects on healing, and he is progressing towards this goal.. Qualifiers: Diabetes mellitus group home insulin use: without termite control representative use Diabetes mellitus complication status: with hyperglycemia Qualified Code(s): E11.65 - Type 2 diabetes mellitus with hyperglycemia (2) Rash: Status: Acute Assessment and plan: Chronic skin rash, distribution possibly consistent with cholesterol deposits, though not typically appearing. Lipids do not show high LDL. I think these may be small tophaceous collections. Uric acid is elevated. May consider punch biopsy, but this could be done as an outpatient. No change (3) Smoker: Status: Acute Assessment and plan: Patient now planning to quit smoking. He thinks he will need to save money to buy his medication. I congratulated him on that decision. He did not want additional medical therapy. Continue Nicotrol inhaler for now. (4) Abscess: Status: Acute Assessment and plan: Improving with decreased white count with addition of vancomycin.. Unfortunately the initial culture is not growing anything, but he could have gotten a new staph infection after the initial I&D, and clinical course is consistent with MRSA. Doing well with wound VAC, but the machine malfunction overnight. Plan is to get outpatient wound VAC if insurance covers, otherwise wet-to-dry dressings.. Finish course of antibiotics with Bactrim on discharge. (5) Hypertension: Status: Chronic Assessment and plan: Blood pressure continues high with elevated urine microalbumin. He was started on lisinopril yesterday. BPs are still high but he is also in pain. I will not be very aggressive as an inpatient, but he may need additional medications as an outpatient. (6) Hypertriglyceridemia: Status: Acute Assessment and plan: Given his overall cardiac risk, he was started on high intensity statin. Lipids can repeated as an outpatient in 6 weeks to see if he is at goal at least under 500. Statin will also decrease his cardiac risk. (7) DVT prophylaxis: Status: Acute Assessment and plan: Lovenox. Subjective Subjective Patient reports: no new complaints; denies shortness of breath and fever Interval history since last seen: Feels well. He did have some pain when the wound VAC stopped working and this dressing need to be changed to wet-to-dry. He states he feels sweaty at times at night, but no fevers or chills. Is good appetite. Denies nausea or vomiting. No bowel changes. No chest pain or palpitations. Exam Narrative Exam Narrative: General: Alert and oriented x3, friendly, no acute distress Lungs: Clear to auscultation bilaterally normal effort Cardiovascular: Regular rate and rhythm with no murmurs gallops or rubs. Abdomen: Active bowel sounds, soft, nontender nondistended. Extremities: No cyanosis clubbing or edema. Nontender to palpation legs. Skin: wound with clean dressing on upper back. Clusters of firm pink papules, many with white tissue centrally that looks like a pustule, but is firm, of some of these lesions coalescing into nodular plaques, on extensor elbow and knees (no change). Objective Objective Clinical Data: Abnormal lab results 03/08/20 Range/Units 06:36 WBC 13.95 H (4.4-10.8) k/cumm Hgb 13.4 L (13.5-17.5) g/dL Hct 39.0 L (40.0-50.0) % Absolute Neutrophils 9.07 H (1.2-6.7) k/cumm Absolute Lymphocytes 3.77 H (1.2-3.4) k/cumm Vital Signs Temperature 36.4 C L 03/08/20 07:30 Temperature Source Tympanic 03/08/20 07:30 Pulse 76 03/08/20 07:30 Pulse Rhythm Regular 03/08/20 08:44 Respiratory Rate 19 03/08/20 07:30 Respiratory Effort Non-Labored 03/08/20 08:44 Respiratory Depth Normal 03/08/20 08:44 Respiratory Pattern Normal 03/08/20 08:44 Blood Pressure 172/99 H 03/08/20 07:30 Pulse Oximetry 95 03/08/20 07:30 Oxygen Delivery Method Room Air 03/08/20 07:30 Oxygen Flow Rate 0 03/08/20 07:30 Pain Level 4 03/08/20 07:55 Comment 03/07/20 07:58 Intake & Output 03/07/20 03/07/20 03/08/20 11:59 23:59 11:59 Intake Total 850 / 2430 1580 / 2430 1000 / 1000 Balance 850 / 2430 1580 / 2430 1000 / 1000 Intake: IV 300 / 810 510 / 810 250 / 250 Oral 550 / 1620 1070 / 1620 750 / 750 Other: Comment voiding independently into the toilet. Voided at this time. PT VOIDING INDEPENDENTLY. REPORTS VOIDING SEVERAL TIMES THIS MORNING. DENIES PAIN, FOUL ODOR, OR OTHER CONCERNS. Stool Size Moderate Stool Characteristics Formed Voiding Methods Toilet Laboratory Results WBC 13.95 k/cumm (4.4-10.8) H 03/08/20 06:36 RBC 4.70 m/cumm (4.50-6.00) 03/08/20 06:36 Hgb 13.4 g/dL (13.5-17.5) L 03/08/20 06:36 Hct 39.0 % (40.0-50.0) L 03/08/20 06:36 MCV 83.0 fL (80-95) 03/08/20 06:36 MCH 28.5 pg (27.0-33.0) 03/08/20 06:36 MCHC 34.4 g/dL (32.0-36.0) 03/08/20 06:36 RDW 13.3 % (11.8-14.1) 03/08/20 06:36 Plt Count 381 x1000/uL (130-400) 03/08/20 06:36 MPV 9.4 fL (8.0-11.0) 03/08/20 06:36 Immature Gran % 0.0 % 03/08/20 06:36 Neutrophils % 63.0 03/08/20 06:36 Band Neutrophils % 2.0 % 03/08/20 06:36 Lymphocytes % 27.0 04/10/20 06:36 Atypical Lymphs % 1 03/06/20 06:30 Monocytes % 5.0 03/08/20 06:36 Eosinophils % 0.0 03/08/20 06:36 Basophils % 0.0 03/08/20 06:36 Metamyelocytes % 3.0 % 03/08/20 06:36 Myelocytes % 5.0 % 03/06/20 06:30 Absolute Neutrophils 9.07 k/cumm (1.2-6.7) H 03/08/20 06:36 Absolute Lymphocytes 3.77 k/cumm (1.2-3.4) H 03/08/20 06:36 Absolute Monocytes 0.70 k/cumm (0.11-0.7) 03/08/20 06:36 Absolute Eosinophils 0.00 k/cumm (0.0-0.7) 03/08/20 06:36 Absolute Basophils 0.00 k/cumm (0.0-0.2) 03/08/20 06:36 Differential Comment Manual differential 03/08/20 06:36 RBC Morphology Normal 03/08/20 06:36 Polychromasia Present 03/06/20 06:30 Sodium 131 mmol/L (136-145) L 03/06/20 06:30 Potassium 3.9 mmol/L (3.5-5.1) D 03/06/20 06:30 Chloride 92 mmol/L (98-107) L 03/06/20 06:30 Carbon Dioxide 30.9 mmol/L (21.0-32.0) 03/06/20 06:30 Anion Gap 8.1 mmol/L (3-11) 03/06/20 06:30 BUN 21 mg/dL (7-18) H D 03/06/20 06:30 Creatinine 0.82 mg/dL (0.70-1.30) 03/06/20 06:30 Estimated GFR/1.73 m2 >= 60.00 (mL/min/1.73m2) 03/06/20 06:30 Glucose 342 mg/dL (74-106) H D 03/06/20 06:30 Hemoglobin A1c 13.3 % (3.8-5.6) H 03/06/20 06:30 Uric Acid 7.9 mg/dL (3.5-7.2) H 03/07/20 06:45 Calcium 8.8 mg/dL (8.5-10.1) 03/06/20 06:30 Magnesium 1.7 mg/dL (1.8-2.4) L 03/06/20 06:30 Total Bilirubin 0.2 mg/dL (0.2-1.0) 03/06/20 06:30 AST 11 U/L (15-37) L 03/06/20 06:30 ALT 14 U/L (16-63) L 03/06/20 06:30 Alkaline Phosphatase 153 U/L (46-116) H 03/06/20 06:30 Total Protein 6.5 g/dL (6.4-8.2) 03/06/20 06:30 Albumin 2.0 g/dL (3.4-5.0) L 03/06/20 06:30 Triglycerides 742 mg/dL (<150) H 03/06/20 06:30 Total Cholesterol 296 mg/dL (<200) H 03/06/20 06:30 LDL Cholesterol Direct 94 mg/dL (<100) 03/06/20 06:30 LDL Cholesterol, Calc Tnp mg/dL (<100) 03/06/20 06:30 HDL Cholesterol 17 mg/dL (40-60) L 03/06/20 06:30 Ur Creatinine mg/dL 67.07 mg/dL 03/05/20 17:01 Ur Microalbumin mg/L 24.6 mg/L (1.30-20.0) H 03/05/20 17:01 Microalb/Creat Ratio 36.7 ug/mg Cr 03/05/20 17:01 Vancomycin Trough 16.5 ug/mL (10.0-20.0) 03/08/20 09:09
--- NOTE | 2020-03-08 12:48 | W.PM.PROGNOT ---
Date of Service Date of service: 03/08/20 Time of Service: 12:49 Assessment and Plan Assessment and plan (1) Abscess: Status: Acute Assessment and plan: Stable. Awaiting information about insurance which will determine next steps. Will need to stay for dressing changes until VAC or home health can be arranged. Subjective Subjective Interval history since last seen: Patient has no complaints. Wound VAC was not functioning overnight, was changed this morning to wet to dry. Patient does require medication before dressing change. Exam Narrative Exam Narrative: No acute distress No significant surrounding erythema, dressing is dry currently Picture of wound from this morning shows a clean wound with no need for debridement. Minimal granulation at this point. Objective Objective Clinical Data: Abnormal lab results 03/08/20 Range/Units 06:36 WBC 13.95 H (4.4-10.8) k/cumm Hgb 13.4 L (13.5-17.5) g/dL Hct 39.0 L (40.0-50.0) % Absolute Neutrophils 9.07 H (1.2-6.7) k/cumm Absolute Lymphocytes 3.77 H (1.2-3.4) k/cumm Vital Signs Temperature 97.5 F L 03/08/20 07:30 Temperature Source Tympanic 03/08/20 07:30 Pulse 76 03/08/20 07:30 Pulse Rhythm Regular 03/08/20 08:44 Respiratory Rate 19 03/08/20 07:30 Respiratory Effort Non-Labored 03/08/20 08:44 Respiratory Depth Normal 03/08/20 08:44 Respiratory Pattern Normal 03/08/20 08:44 Blood Pressure 172/99 H 03/08/20 07:30 Pulse Oximetry 95 03/08/20 07:30 Oxygen Delivery Method Room Air 03/08/20 07:30 Oxygen Flow Rate 0 03/08/20 07:30 Pain Level 4 03/08/20 07:55 Comment 03/07/20 07:58 Intake & Output 03/07/20 03/08/20 03/08/20 23:59 11:59 23:59 Intake Total 1580 / 2430 1000 / 1000 Balance 1580 / 2430 1000 / 1000 Intake: IV 510 / 810 250 / 250 Oral 1070 / 1620 750 / 750 Other: Comment voiding independently into the toilet. Voided at this time. PT VOIDING INDEPENDENTLY. REPORTS VOIDING SEVERAL TIMES THIS MORNING. DENIES PAIN, FOUL ODOR, OR OTHER CONCERNS. Stool Size Moderate Stool Characteristics Formed Voiding Methods Toilet Laboratory Results WBC 13.95 k/cumm (4.4-10.8) H 03/08/20 06:36 RBC 4.70 m/cumm (4.50-6.00) 03/08/20 06:36 Hgb 13.4 g/dL (13.5-17.5) L 03/08/20 06:36 Hct 39.0 % (40.0-50.0) L 03/08/20 06:36 MCV 83.0 fL (80-95) 03/08/20 06:36 MCH 28.5 pg (27.0-33.0) 03/08/20 06:36 MCHC 34.4 g/dL (32.0-36.0) 03/08/20 06:36 RDW 13.3 % (11.8-14.1) 03/08/20 06:36 Plt Count 381 x1000/uL (130-400) 03/08/20 06:36 MPV 9.4 fL (8.0-11.0) 03/08/20 06:36 Immature Gran % 0.0 % 03/08/20 06:36 Neutrophils % 63.0 03/08/20 06:36 Band Neutrophils % 2.0 % 03/08/20 06:36 Lymphocytes % 27.0 03/08/20 06:36 Atypical Lymphs % 1 03/06/20 06:30 Monocytes % 5.0 03/08/20 06:36 Eosinophils % 0.0 03/08/20 06:36 Basophils % 0.0 03/08/20 06:36 Metamyelocytes % 3.0 % 03/08/20 06:36 Myelocytes % 5.0 % 03/06/20 06:30 Absolute Neutrophils 9.07 k/cumm (1.2-6.7) H 03/08/20 06:36 Absolute Lymphocytes 3.77 k/cumm (1.2-3.4) H 03/08/20 06:36 Absolute Monocytes 0.70 k/cumm (0.11-0.7) 03/08/20 06:36 Absolute Eosinophils 0.00 k/cumm (0.0-0.7) 03/08/20 06:36 Absolute Basophils 0.00 k/cumm (0.0-0.2) 03/08/20 06:36 Differential Comment Manual differential 03/08/20 06:36 RBC Morphology Normal 03/08/20 06:36 Polychromasia Present 03/06/20 06:30 Sodium 131 mmol/L (136-145) L 03/06/20 06:30 Potassium 3.9 mmol/L (3.5-5.1) D 03/06/20 06:30 Chloride 92 mmol/L (98-107) L 03/06/20 06:30 Carbon Dioxide 30.9 mmol/L (21.0-32.0) 03/06/20 06:30 Anion Gap 8.1 mmol/L (3-11) 03/06/20 06:30 BUN 21 mg/dL (7-18) H D 03/06/20 06:30 Creatinine 0.82 mg/dL (0.70-1.30) 03/06/20 06:30 Estimated GFR/1.73 m2 >= 60.00 (mL/min/1.73m2) 03/06/20 06:30 Glucose 342 mg/dL (74-106) H D 03/06/20 06:30 Hemoglobin A1c 13.3 % (3.8-5.6) H 03/06/20 06:30 Uric Acid 7.9 mg/dL (3.5-7.2) H 03/07/20 06:45 Calcium 8.8 mg/dL (8.5-10.1) 03/06/20 06:30 Magnesium 1.7 mg/dL (1.8-2.4) L 03/06/20 06:30 Total Bilirubin 0.2 mg/dL (0.2-1.0) 03/06/20 06:30 AST 11 U/L (15-37) L 03/06/20 06:30 ALT 14 U/L (16-63) L 03/06/20 06:30 Alkaline Phosphatase 153 U/L (46-116) H 03/06/20 06:30 Total Protein 6.5 g/dL (6.4-8.2) 03/06/20 06:30 Albumin 2.0 g/dL (3.4-5.0) L 03/06/20 06:30 Triglycerides 742 mg/dL (<150) H 03/06/20 06:30 Total Cholesterol 296 mg/dL (<200) H 03/06/20 06:30 LDL Cholesterol Direct 94 mg/dL (<100) 03/06/20 06:30 LDL Cholesterol, Calc Tnp mg/dL (<100) 03/06/20 06:30 HDL Cholesterol 17 mg/dL (40-60) L 03/06/20 06:30 Ur Creatinine mg/dL 67.07 mg/dL 03/05/20 17:01 Ur Microalbumin mg/L 24.6 mg/L (1.30-20.0) H 03/05/20 17:01 Microalb/Creat Ratio 36.7 ug/mg Cr 03/05/20 17:01 Vancomycin Trough 16.5 ug/mL (10.0-20.0) 03/08/20 09:09
[2020-03-08 15:20] VITALS: BP 159/92; PULSE 88; RESP 20; TEMP 37.1; O2SAT 96
--- NOTE | 2020-03-08 16:23 | PDOC.CMPRO ---
- If Service Date Differs Date of service: 03/08/20 Time of Service: 16:27 Care Management Progress Note S/O: OLIVERIO worked in conjunction with Jonathan today in order to push Patrick's insurance through. It was finally in place at 3:30pm. OLIVERIO called to provide them the insurance information. OLIVERIO asked Dr. Hanley if Surgical would follow his HH orders, which she agreed. His previous PCP will not follow them because he has not been there in over 10 years. His new PCP ([facility]) will not follow the orders until he is established with them, but they have agreed to take him on as a patient. OLIVERIO discussed this with Patrick, expressing the importance of him contacting [facility] and providing them with the necessary information to move forward with establishing at new PCP. OLIVERIO contacted [facility] and provided new insurance info. [facility] to call and arrange delivery of home Wound Vac, possibly tomorrow. OLIVERIO contacted his pharmacy, [facility]. His insurance was not showing active in their system, which often happens with a new policy. OLIVERIO will call in the morning to see if it is active and obtain copay information for Patrick. If the wound vac is in place, HH is notified, and prescription coverage is active, Patrick may be discharged home tomorrow afternoon. Patrick was very pleased that he now has insurance, and was very grateful to OLIVERIO and Jonathan for their assistance. OLIVERIO will continue to follow. A: Patrick is a 49 year old male admitted to [facility] on 03/05/20 with a back/neck abscess. P: Anticipate Patrick will return home with new orders for HH RN when medically cleared. He will need his new insurance in place prior to returning home. He will also have a new home wound vac, new diabetic supplies and new prescriptions. He will be driven home via private vehicle by family when ready. He will follow up with Surgery and his PCP, as recommended. OLIVERIO will continue to follow.
[2020-03-08 19:00] VITALS: BP 150/83; PULSE 83; RESP 20; TEMP 36.7; O2SAT 94
[2020-03-08] MEDS: Atorvastatin 40 MG TAB PO (20:06)
[2020-03-08] MEDS: Insulin Glargine 300 UNITS/3 ML PEN 30 UNITS SC (21:21)
[2020-03-09] MEDS: Normal Saline Flush 10 ML SYR IVP ×3 (02:25→18:37)
[2020-03-09 03:36] VITALS: BP 129/85; PULSE 77; RESP 18; TEMP 36.5; O2SAT 96
[2020-03-09 07:20] VITALS: BP 158/95; PULSE 75; RESP 20; TEMP 36.6; O2SAT 95
[2020-03-09 08:05] VITALS: O2SAT 95
[2020-03-09] MEDS: Insulin Aspart 300 UNITS/3 ML PEN SC ×3 (08:12→17:14)
[2020-03-09] MEDS: metFORMIN 500 MG TAB PO ×2 (08:12→16:48)
[2020-03-09] MEDS: Lisinopril 10 MG TAB PO (08:12)
[2020-03-09 08:48] LABS: Abs Immature Grans 0.66 k/cumm (0.0-0.09); HCT 39.1 % (40.0-50.0); HGB 13.9 g/dL (13.5-17.5); Mean Corp. HGB Concentration 35.5 g/dL (32.0-36.0); Mean Corpuscular Hemoglobin 29.3 pg (27.0-33.0); Mean Corpuscular Volume 82.3 fL (80-95); Platelet Count 364 x1000/uL (130-400); RBC 4.75 m/cumm (4.50-6.00); RBC Distribution Width 13.2 % (11.8-14.1); White Blood Cell Count 12.51 k/cumm (4.4-10.8)
[2020-03-09 08:58] LABS: Anion Gap 3.9 mmol/L (3-11); BUN 11 mg/dL (7-18); C-Reactive Protein 1.38 mg/dL (0.0-0.3); CO2 32.1 mmol/L (21.0-32.0); CREATININE 0.67 mg/dL (0.70-1.30); Calcium 8.9 mg/dL (8.5-10.1); Chloride 100 mmol/L (98-107); Glucose 209 mg/dL (74-106); Magnesium 1.6 mg/dL (1.8-2.4); Potassium 4.2 mmol/L (3.5-5.1); Sodium 136 mmol/L (136-145)
[2020-03-09 09:12] LABS: Absolute Basophil Count 0.25 k/cumm (0.0-0.2); Absolute Eosinophil Count 0.75 k/cumm (0.0-0.7); Absolute Lymphocyte Count 3.38 k/cumm (1.2-3.4); Absolute Monocyte Count 1.25 k/cumm (0.11-0.7); Absolute Neutrophil Count 6.63 k/cumm (1.2-6.7)
[2020-03-09 09:13] LABS: Diff Comment Manual Differential
[2020-03-09 09:14] LABS: RBC Morphology Normal
[2020-03-09] MEDS: Enoxaparin 40 MG/0.4 ML SYR SC (09:37)
[2020-03-09] MEDS: cefTRIAXone 1 GM/50 ML BAG IVPB (09:37)
--- NOTE | 2020-03-09 10:39 | CMPROGNOTE_ITS ---
- If Service Date Differs Date of service: 03/09/20 Time of Service: 10:39 Care Management Progress Note S/O: OLIVERIO contacts [facility] to inquire as to status of wound vac and is awaiting a return phone call from the [facility] service center, who will be the ones delivering the wound vac to the hospital. OLIVERIO has confirmed his insurance through [employer] is now active, and has also contacted Evan's pharmacy, [facility], and obtained co-pay amounts for prescriptions ready for pick-up at the pharmacy. This info rmation has been provided to Evan. OLIVERIO will continue to follow. A: Evan is a 49 year old male admitted to [facility] on 03/05/2020 with a back/neck abscess. P: Evan will return home with new orders for Home Health nursing when medically cleared by provider. He will also be returning home with a new home wound vac provided by [facility], new diabetic supplies and new prescriptions. Family will drive him home via private vehicle when ready. He will follow-up with his PCP and surgeon following discharge. CM will continue to support patient and discharge planning needs.
[2020-03-09] MEDS: HYDROmorphone 2 MG/ML VIAL 1 MG IVP (11:05)
[2020-03-09] MEDS: MAGNESIUM SULFATE 2 GM/50 ML BAG IVPB (11:08)
--- NOTE | 2020-03-09 11:37 | PGE_ITS ---
Date of Service Date of service: 03/09/20 Time of Service: 11:38 Assessment and Plan Assessment and plan (1) Abscess: Status: Acute Assessment and plan: S/p I&D on 03/05/20. Intraop cx negative. Blood cultures just ordered to ensure that they are negative as well. On vancomycin/ceftriaxone. Assuming blood cultures are negative, recommend discharging home with keflex/bactrim. (2) Type 2 diabetes mellitus: Status: Acute Assessment and plan: Newly diagnosed, A1C 13.3. FBG 210. Increase basal insulin to 35 units HS. Continue metformin, SSI. Await DM education consult. Qualifiers: Diabetes mellitus exterminator helper termite insulin use: without assisted use Diabetes mellitus complication status: with hyperglycemia Qualified Code(s): E11.65 - Type 2 diabetes mellitus with hyperglycemia (3) Rash: Status: Acute Assessment and plan: Agree that this appears to be cholesterol deposits vs tophi. Follow up as outpatient. (4) Smoker: Status: Acute Assessment and plan: advised to quit. Continue Nicotrol inhaler (5) Hypertension: Status: Chronic Assessment and plan: Continue lisinopril - agree that some of the hypertension is caused by pain. (6) Hypertriglyceridemia: Status: Acute Assessment and plan: Continue atorvastatin (7) DVT prophylaxis: Status: Acute Assessment and plan: Lovenox. (8) Discharge planning issues: Status: Acute Assessment and plan: Full code Subjective Subjective Interval history since last seen: Feels well other than a little sore in the neck after just having had his dressing changed. Awaiting approval on wound vac - currently, not on him. Denies dizziness, chest pain, shortness of breath, palpitations, nausea. Has been injecting his own insulin here and is wondering where else he can inject on his body. We talked about signs and symptoms of hypoglycemia Exam Narrative Exam Narrative: General: Very pleasant middle-aged male, sitting up in bed, appears comfortable HEENT: EOMI, MMM, posterior neck wound dressed - c/d/i Heart: RRR, no m/r/g Lungs: slight crackles at B bases that clear with deep inspiration Abdomen: soft, nontender, nondistended Extremities: no e/c/c BLE's, tinea pedis Objective Objective Clinical Data: Abnormal lab results 03/09/20 03/09/20 Range/Units 08:40 08:40 WBC 12.51 H (4.4-10.8) k/cumm Hct 39.1 L (40.0-50.0) % Absolute Monocytes 1.25 H (0.11-0.7) k/cumm Absolute Eosinophils 0.75 H (0.0-0.7) k/cumm Absolute Basophils 0.25 H (0.0-0.2) k/cumm Carbon Dioxide 32.1 H (21.0-32.0) mmol/L Creatinine 0.67 L (0.70-1.30) mg/dL Glucose 209 H (74-106) mg/dL Magnesium 1.6 L (1.8-2.4) mg/dL C-Reactive Protein 1.38 H (0.0-0.3) mg/dL Vital Signs Temperature 36.6 C 03/09/20 07:20 Temperature Source Tympanic 03/09/20 07:20 Pulse 75 03/09/20 07:20 Pulse Rhythm Regular 03/09/20 08:05 Respiratory Rate 20 03/09/20 07:20 Respiratory Effort Non-Labored 03/09/20 08:05 Respiratory Depth Normal 03/09/20 08:05 Respiratory Pattern Normal 03/09/20 08:05 Blood Pressure 158/95 H 03/09/20 07:20 Pulse Oximetry 95 03/09/20 08:05 Oxygen Delivery Method Room Air 03/09/20 08:05 Oxygen Flow Rate 0 03/09/20 08:05 Pain Level 4 03/09/20 07:20 Comment 03/07/20 07:58 Intake & Output 03/08/20 03/08/20 03/09/20 11:59 23:59 11:59 Intake Total 1050 / 1800 750 / 1800 500 / 500 Balance 1050 / 1800 750 / 1800 500 / 500 Intake: IV 300 / 800 500 / 800 250 / 250 Oral 750 / 1000 250 / 1000 250 / 250 Other: Urine Color Yellow Yellow Urine Appearance Clear Clear Comment PT VOIDING INDEPENDENTLY. REPORTS VOIDING SEVERAL TIMES THIS MORNING. DENIES PAIN, FOUL ODOR, OR OTHER CONCERNS. Stool Size Moderate Stool Characteristics Formed Brown Voiding Methods Toilet Toilet Toilet Laboratory Results WBC 12.51 k/cumm (4.4-10.8) H 03/09/20 08:40 RBC 4.75 m/cumm (4.50-6.00) 03/09/20 08:40 Hgb 13.9 g/dL (13.5-17.5) 03/09/20 08:40 Hct 39.1 % (40.0-50.0) L 03/09/20 08:40 MCV 82.3 fL (80-95) 03/09/20 08:40 MCH 29.3 pg (27.0-33.0) 03/09/20 08:40 MCHC 35.5 g/dL (32.0-36.0) 03/09/20 08:40 RDW 13.2 % (11.8-14.1) 03/09/20 08:40 Plt Count 364 x1000/uL (130-400) 03/09/20 08:40 MPV 9.0 fL (8.0-11.0) 03/09/20 08:40 Immature Gran % 0.0 % 03/09/20 08:40 Neutrophils % 53.0 03/09/20 08:40 Band Neutrophils % 2.0 % 03/08/20 06:36 Lymphocytes % 27.0 03/09/20 08:40 Atypical Lymphs % 1 03/06/20 06:30 Monocytes % 10.0 03/09/20 08:40 Eosinophils % 6.0 03/09/20 08:40 Basophils % 2.0 03/09/20 08:40 Metamyelocytes % 3.0 % 03/09/20 08:40 Myelocytes % 5.0 % 03/06/20 06:30 Absolute Neutrophils 6.63 k/cumm (1.2-6.7) 03/09/20 08:40 Absolute Lymphocytes 3.38 k/cumm (1.2-3.4) 03/09/20 08:40 Absolute Monocytes 1.25 k/cumm (0.11-0.7) H 03/09/20 08:40 Absolute Eosinophils 0.75 k/cumm (0.0-0.7) H 03/09/20 08:40 Absolute Basophils 0.25 k/cumm (0.0-0.2) H 03/09/20 08:40 Differential Comment Manual differential 03/09/20 08:40 RBC Morphology Normal 03/09/20 08:40 Polychromasia Present 03/06/20 06:30 Sodium 136 mmol/L (136-145) 03/09/20 08:40 Potassium 4.2 mmol/L (3.5-5.1) 03/09/20 08:40 Chloride 100 mmol/L (98-107) 03/09/20 08:40 Carbon Dioxide 32.1 mmol/L (21.0-32.0) H 03/09/20 08:40 Anion Gap 3.9 mmol/L (3-11) 03/09/20 08:40 BUN 11 mg/dL (7-18) 03/09/20 08:40 Creatinine 0.67 mg/dL (0.70-1.30) L 03/09/20 08:40 Estimated GFR/1.73 m2 >= 60.00 (mL/min/1.73m2) 03/09/20 08:40 Glucose 209 mg/dL (74-106) H 03/09/20 08:40 Hemoglobin A1c 13.3 % (3.8-5.6) H 03/06/20 06:30 Uric Acid 7.9 mg/dL (3.5-7.2) H 03/07/20 06:45 Calcium 8.9 mg/dL (8.5-10.1) 03/09/20 08:40 Magnesium 1.6 mg/dL (1.8-2.4) L 03/09/20 08:40 Total Bilirubin 0.2 mg/dL (0.2-1.0) 03/06/20 06:30 AST 11 U/L (15-37) L 03/06/20 06:30 ALT 14 U/L (16-63) L 03/06/20 06:30 Alkaline Phosphatase 153 U/L (46-116) H 03/06/20 06:30 C-Reactive Protein 1.38 mg/dL (0.0-0.3) H 03/09/20 08:40 Total Protein 6.5 g/dL (6.4-8.2) 03/06/20 06:30 Albumin 2.0 g/dL (3.4-5.0) L 03/06/20 06:30 Triglycerides 742 mg/dL (<150) H 03/06/20 06:30 Total Cholesterol 296 mg/dL (<200) H 03/06/20 06:30 LDL Cholesterol Direct 94 mg/dL (<100) 03/06/20 06:30 LDL Cholesterol, Calc Tnp mg/dL (<100) 03/06/20 06:30 HDL Cholesterol 17 mg/dL (40-60) L 03/06/20 06:30 Ur Creatinine mg/dL 67.07 mg/dL 03/05/20 17:01 Ur Microalbumin mg/L 24.6 mg/L (1.30-20.0) H 03/05/20 17:01 Microalb/Creat Ratio 36.7 ug/mg Cr 03/05/20 17:01 Vancomycin Trough 16.5 ug/mL (10.0-20.0) 03/08/20 09:09
--- NOTE | 2020-03-09 13:12 | W.PM.PROGNOT ---
Date of Service Date of service: 03/09/20 Time of Service: 11:00 Assessment and Plan Assessment and plan (1) Abscess: Status: Acute Assessment and plan: The site looks good WBC slightly improved Blood cultures pending per IM Awaiting wound VAC Subjective Subjective Interval history since last seen: No complaints. Exam Narrative Exam Narrative: Appears well Wound is clean, no sloughing, beginning granulation. No cellulitis Repacked with moist 4x4 and topped with ABD Objective Objective Clinical Data: Abnormal lab results 03/09/20 03/09/20 Range/Units 08:40 08:40 WBC 12.51 H (4.4-10.8) k/cumm Hct 39.1 L (40.0-50.0) % Absolute Monocytes 1.25 H (0.11-0.7) k/cumm Absolute Eosinophils 0.75 H (0.0-0.7) k/cumm Absolute Basophils 0.25 H (0.0-0.2) k/cumm Carbon Dioxide 32.1 H (21.0-32.0) mmol/L Creatinine 0.67 L (0.70-1.30) mg/dL Glucose 209 H (74-106) mg/dL Magnesium 1.6 L (1.8-2.4) mg/dL C-Reactive Protein 1.38 H (0.0-0.3) mg/dL Vital Signs Temperature 97.9 F 03/09/20 07:20 Temperature Source Tympanic 03/09/20 07:20 Pulse 75 03/09/20 07:20 Pulse Rhythm Regular 03/09/20 08:05 Respiratory Rate 20 03/09/20 07:20 Respiratory Effort Non-Labored 03/09/20 08:05 Respiratory Depth Normal 03/09/20 08:05 Respiratory Pattern Normal 03/09/20 08:05 Blood Pressure 158/95 H 03/09/20 07:20 Pulse Oximetry 95 03/09/20 08:05 Oxygen Delivery Method Room Air 03/09/20 08:05 Oxygen Flow Rate 0 03/09/20 08:05 Pain Level 4 03/09/20 07:20 Comment 03/07/20 07:58 Intake & Output 03/08/20 03/09/20 03/09/20 23:59 11:59 23:59 Intake Total 750 / 1800 500 / 500 Balance 750 / 1800 500 / 500 Intake: IV 500 / 800 250 / 250 Oral 250 / 1000 250 / 250 Other: Urine Color Yellow Yellow Urine Appearance Clear Clear Stool Size Moderate Stool Characteristics Formed Brown Voiding Methods Toilet Toilet Laboratory Results WBC 12.51 k/cumm (4.4-10.8) H 03/09/20 08:40 RBC 4.75 m/cumm (4.50-6.00) 03/09/20 08:40 Hgb 13.9 g/dL (13.5-17.5) 03/09/20 08:40 Hct 39.1 % (40.0-50.0) L 03/09/20 08:40 MCV 82.3 fL (80-95) 03/09/20 08:40 MCH 29.3 pg (27.0-33.0) 03/09/20 08:40 MCHC 35.5 g/dL (32.0-36.0) 03/09/20 08:40 RDW 13.2 % (11.8-14.1) 03/09/20 08:40 Plt Count 364 x1000/uL (130-400) 03/09/20 08:40 MPV 9.0 fL (8.0-11.0) 03/09/20 08:40 Immature Gran % 0.0 % 03/09/20 08:40 Neutrophils % 53.0 03/09/20 08:40 Band Neutrophils % 2.0 % 03/08/20 06:36 Lymphocytes % 27.0 03/09/20 08:40 Atypical Lymphs % 1 03/06/20 06:30 Monocytes % 10.0 03/09/20 08:40 Eosinophils % 6.0 03/09/20 08:40 Basophils % 2.0 03/09/20 08:40 Metamyelocytes % 3.0 % 03/09/20 08:40 Myelocytes % 5.0 % 03/06/20 06:30 Absolute Neutrophils 6.63 k/cumm (1.2-6.7) 03/09/20 08:40 Absolute Lymphocytes 3.38 k/cumm (1.2-3.4) 03/09/20 08:40 Absolute Monocytes 1.25 k/cumm (0.11-0.7) H 03/09/20 08:40 Absolute Eosinophils 0.75 k/cumm (0.0-0.7) H 03/09/20 08:40 Absolute Basophils 0.25 k/cumm (0.0-0.2) H 03/09/20 08:40 Differential Comment Manual differential 03/09/20 08:40 RBC Morphology Normal 03/09/20 08:40 Polychromasia Present 03/06/20 06:30 Sodium 136 mmol/L (136-145) 03/09/20 08:40 Potassium 4.2 mmol/L (3.5-5.1) 03/09/20 08:40 Chloride 100 mmol/L (98-107) 03/09/20 08:40 Carbon Dioxide 32.1 mmol/L (21.0-32.0) H 03/09/20 08:40 Anion Gap 3.9 mmol/L (3-11) 03/09/20 08:40 BUN 11 mg/dL (7-18) 03/09/20 08:40 Creatinine 0.67 mg/dL (0.70-1.30) L 03/09/20 08:40 Estimated GFR/1.73 m2 >= 60.00 (mL/min/1.73m2) 03/09/20 08:40 Glucose 209 mg/dL (74-106) H 03/09/20 08:40 Hemoglobin A1c 13.3 % (3.8-5.6) H 03/06/20 06:30 Uric Acid 7.9 mg/dL (3.5-7.2) H 03/07/20 06:45 Calcium 8.9 mg/dL (8.5-10.1) 03/09/20 08:40 Magnesium 1.6 mg/dL (1.8-2.4) L 03/09/20 08:40 Total Bilirubin 0.2 mg/dL (0.2-1.0) 03/06/20 06:30 AST 11 U/L (15-37) L 03/06/20 06:30 ALT 14 U/L (16-63) L 03/06/20 06:30 Alkaline Phosphatase 153 U/L (46-116) H 03/06/20 06:30 C-Reactive Protein 1.38 mg/dL (0.0-0.3) H 03/09/20 08:40 Total Protein 6.5 g/dL (6.4-8.2) 03/06/20 06:30 Albumin 2.0 g/dL (3.4-5.0) L 03/06/20 06:30 Triglycerides 742 mg/dL (<150) H 03/06/20 06:30 Total Cholesterol 296 mg/dL (<200) H 03/06/20 06:30 LDL Cholesterol Direct 94 mg/dL (<100) 03/06/20 06:30 LDL Cholesterol, Calc Tnp mg/dL (<100) 03/06/20 06:30 HDL Cholesterol 17 mg/dL (40-60) L 03/06/20 06:30 Ur Creatinine mg/dL 67.07 mg/dL 03/05/20 17:01 Ur Microalbumin mg/L 24.6 mg/L (1.30-20.0) H 03/05/20 17:01 Microalb/Creat Ratio 36.7 ug/mg Cr 03/05/20 17:01 Vancomycin Trough 16.5 ug/mL (10.0-20.0) 03/08/20 09:09
[2020-03-09 15:00] VITALS: BP 147/90; PULSE 89; RESP 20; TEMP 36.4; O2SAT 96
[2020-03-09] MEDS: HYDROcodone 5/Acetaminophen 325 TAB PO (16:48)
[2020-03-09] MEDS: Ketorolac 30 MG/ML VIAL IVP (18:37)
[2020-03-09 19:45] VITALS: BP 148/90; PULSE 85; RESP 18; TEMP 36.5; O2SAT 96
[2020-03-09] MEDS: Atorvastatin 40 MG TAB PO (20:10)
[2020-03-09] MEDS: Insulin Glargine 300 UNITS/3 ML PEN 35 UNITS SC (22:50)
[2020-03-09] MEDS: Ketoconazole 2% CREAM 15 GM TUBE TP (22:56)
[2020-03-09 23:21] VITALS: O2SAT 96
[2020-03-10] MEDS: Normal Saline Flush 10 ML SYR IVP ×3 (02:07→16:19)
[2020-03-10 04:22] VITALS: BP 144/87; PULSE 68; RESP 16; TEMP 36.7; O2SAT 97
[2020-03-10] MEDS: HYDROcodone 5/Acetaminophen 325 TAB PO (05:48)
[2020-03-10 06:33] VITALS: O2SAT 97
[2020-03-10 07:11] LABS: Abs Immature Grans 0.33 k/cumm (0.0-0.09); Absolute Basophil Count 0.02 k/cumm (0.0-0.2); Absolute Eosinophil Count 0.24 k/cumm (0.0-0.7); Absolute Lymphocyte Count 3.35 k/cumm (1.2-3.4); Absolute Monocyte Count 0.57 k/cumm (0.11-0.7); Absolute Neutrophil Count 6.73 k/cumm (1.2-6.7); Basophils % 0.2; Eosinophils % 2.1; HCT 37.9 % (40.0-50.0); HGB 13.3 g/dL (13.5-17.5); Immature Grans % 2.9 %; Lymphocytes % 29.8; Mean Corp. HGB Concentration 35.1 g/dL (32.0-36.0); Mean Corpuscular Volume 82.8 fL (80-95); Mean Platelet Volume 9.2 fL (8.0-11.0); Monocytes % 5.1; Neutrophils % 59.9; Platelet Count 333 x1000/uL (130-400); RBC 4.58 m/cumm (4.50-6.00); RBC Distribution Width 13.2 % (11.8-14.1); White Blood Cell Count 11.24 k/cumm (4.4-10.8)
[2020-03-10 07:28] LABS: Anion Gap 7.6 mmol/L (3-11); BUN 16 mg/dL (7-18); C-Reactive Protein 0.96 mg/dL (0.0-0.3); CO2 26.4 mmol/L (21.0-32.0); CREATININE 0.71 mg/dL (0.70-1.30); Calcium 8.7 mg/dL (8.5-10.1); Chloride 102 mmol/L (98-107); Glucose 208 mg/dL (74-106); Magnesium 1.6 mg/dL (1.8-2.4); Potassium 4.5 mmol/L (3.5-5.1); Sodium 136 mmol/L (136-145)
[2020-03-10 07:35] VITALS: BP 165/107; PULSE 78; RESP 20; TEMP 36.6; O2SAT 96
[2020-03-10 08:10] VITALS: O2SAT 97
[2020-03-10] MEDS: metFORMIN 500 MG TAB PO (08:13)
[2020-03-10] MEDS: Lisinopril 10 MG TAB PO (08:13)
[2020-03-10] MEDS: Insulin Aspart 300 UNITS/3 ML PEN SC ×2 (08:14→11:54)
[2020-03-10 09:23] LABS: Vancomycin, Trough 16.2 ug/mL (10.0-20.0)
[2020-03-10] MEDS: cefTRIAXone 1 GM/50 ML BAG IVPB (10:27)
[2020-03-10] MEDS: MAGNESIUM SULFATE 2 GM/50 ML BAG IVPB (11:48)
--- NOTE | 2020-03-10 13:40 | PGE_ITS ---
Date of Service Date of service: 03/10/20 Time of Service: 13:40 Assessment and Plan Assessment and plan (1) Abscess: Status: Acute Assessment and plan: S/p I&D on 03/05/20. Intraop cx negative. Blood cultures also negative. On vancomycin/ceftriaxone in the hospital. Assuming blood cultures are negative, recommend discharging home with keflex/bactrim. (2) Type 2 diabetes mellitus: Status: Acute Assessment and plan: Newly diagnosed, A1C 13.3. FBG better. Discharge with lantus 35 units HS, metformin. I ordered diabetic supplies. Continue metformin, SSI. DM education referral placed for outpatient counseling. Qualifiers: Diabetes mellitus [facility] insulin use: without [facility] use Diabetes mellitus complication status: with hyperglycemia Qualified Code(s): E11.65 - Type 2 diabetes mellitus with hyperglycemia (3) Rash: Status: Acute Assessment and plan: Agree that this appears to be cholesterol deposits vs tophi. Follow up as outpatient. (4) Smoker: Status: Acute Assessment and plan: advised to quit. Continue Nicotrol inhaler (5) Hypertension: Status: Chronic Assessment and plan: Continue lisinopril - agree that some of the hypertension is caused by pain. (6) Hypertriglyceridemia: Status: Acute Assessment and plan: Continue atorvastatin (7) DVT prophylaxis: Status: Acute Assessment and plan: Lovenox. (8) Discharge planning issues: Status: Acute Assessment and plan: Full code Hospitalists are signing off. Please, reconsult if needed. Subjective Subjective Interval history since last seen: Denies dizziness, chest pain, shortness of breath, nausea. Would like to go home today. Wound vac has not yet been delivered/placed. Exam Narrative Exam Narrative: General: Very pleasant middle-aged male, A&Ox3, NAD HEENT: EOMI, MMM, posterior neck wound dressed - c/d/i Heart: RRR, no m/r/g Lungs: CTAB Abdomen: soft, nontender, nondistended Extremities: no e/c/c BLE's, tinea pedis Objective Objective Clinical Data: Abnormal lab results 03/10/20 03/10/20 Range/Units 06:15 06:15 WBC 11.24 H (4.4-10.8) k/cumm Hgb 13.3 L (13.5-17.5) g/dL Hct 37.9 L (40.0-50.0) % Absolute Neutrophils 6.73 H (1.2-6.7) k/cumm Glucose 208 H (74-106) mg/dL Magnesium 1.6 L (1.8-2.4) mg/dL C-Reactive Protein 0.96 H (0.0-0.3) mg/dL Vital Signs Temperature 36.6 C 03/10/20 07:35 Temperature Source Tympanic 03/10/20 07:35 Pulse 78 03/10/20 07:35 Pulse Rhythm Regular 03/10/20 08:10 Respiratory Rate 20 03/10/20 07:35 Respiratory Effort Non-Labored 03/10/20 08:10 Respiratory Depth Normal 03/10/20 08:10 Respiratory Pattern Normal 03/10/20 08:10 Blood Pressure 165/107 H 03/10/20 07:35 Pulse Oximetry 97 03/10/20 08:10 Oxygen Delivery Method Room Air 03/10/20 08:10 Oxygen Flow Rate 0 03/10/20 08:10 Pain Level 4 03/10/20 07:35 Comment 03/07/20 07:58 Intake & Output 03/09/20 03/10/20 03/10/20 23:59 11:59 23:59 Intake Total 1340 / 2140 500 / 500 Balance 1340 / 2140 500 / 500 Intake: IV 500 / 800 250 / 250 Oral 840 / 1340 250 / 250 Other: Urine Color Yellow Yellow Urine Appearance Clear Clear Comment voids independently in toilet voids in the tiolet without issues as per patient report Stool Size Moderate Stool Characteristics Soft Formed Voiding Methods Toilet Toilet Laboratory Results WBC 11.24 k/cumm (4.4-10.8) H 03/10/20 06:15 RBC 4.58 m/cumm (4.50-6.00) 03/10/20 06:15 Hgb 13.3 g/dL (13.5-17.5) L 03/10/20 06:15 Hct 37.9 % (40.0-50.0) L 03/10/20 06:15 MCV 82.8 fL (80-95) 03/10/20 06:15 MCH 29.0 pg (27.0-33.0) 03/10/20 06:15 MCHC 35.1 g/dL (32.0-36.0) 03/10/20 06:15 RDW 13.2 % (11.8-14.1) 03/10/20 06:15 Plt Count 333 x1000/uL (130-400) 03/10/20 06:15 MPV 9.2 fL (8.0-11.0) 03/10/20 06:15 Immature Gran % 2.9 % 03/10/20 06:15 Neutrophils % 59.9 03/10/20 06:15 Band Neutrophils % 2.0 % 03/08/20 06:36 Lymphocytes % 29.8 03/10/20 06:15 Atypical Lymphs % 1 03/06/20 06:30 Monocytes % 5.1 03/10/20 06:15 Eosinophils % 2.1 03/10/20 06:15 Basophils % 0.2 03/10/20 06:15 Metamyelocytes % 3.0 % 03/09/20 08:40 Myelocytes % 5.0 % 03/06/20 06:30 Absolute Neutrophils 6.73 k/cumm (1.2-6.7) H 03/10/20 06:15 Absolute Lymphocytes 3.35 k/cumm (1.2-3.4) 03/10/20 06:15 Absolute Monocytes 0.57 k/cumm (0.11-0.7) 03/10/20 06:15 Absolute Eosinophils 0.24 k/cumm (0.0-0.7) 03/10/20 06:15 Absolute Basophils 0.02 k/cumm (0.0-0.2) 03/10/20 06:15 Differential Comment Manual differential 03/09/20 08:40 RBC Morphology Normal 03/09/20 08:40 Polychromasia Present 03/06/20 06:30 Sodium 136 mmol/L (136-145) 03/10/20 06:15 Potassium 4.5 mmol/L (3.5-5.1) 03/10/20 06:15 Chloride 102 mmol/L (98-107) 03/10/20 06:15 Carbon Dioxide 26.4 mmol/L (21.0-32.0) 03/10/20 06:15 Anion Gap 7.6 mmol/L (3-11) 03/10/20 06:15 BUN 16 mg/dL (7-18) 03/10/20 06:15 Creatinine 0.71 mg/dL (0.70-1.30) 03/10/20 06:15 Estimated GFR/1.73 m2 >= 60.00 (mL/min/1.73m2) 03/10/20 06:15 Glucose 208 mg/dL (74-106) H 03/10/20 06:15 Hemoglobin A1c 13.3 % (3.8-5.6) H 03/06/20 06:30 Uric Acid 7.9 mg/dL (3.5-7.2) H 03/07/20 06:45 Calcium 8.7 mg/dL (8.5-10.1) 03/10/20 06:15 Magnesium 1.6 mg/dL (1.8-2.4) L 03/10/20 06:15 Total Bilirubin 0.2 mg/dL (0.2-1.0) 03/06/20 06:30 AST 11 U/L (15-37) L 03/06/20 06:30 ALT 14 U/L (16-63) L 03/06/20 06:30 Alkaline Phosphatase 153 U/L (46-116) H 03/06/20 06:30 C-Reactive Protein 0.96 mg/dL (0.0-0.3) H 03/10/20 06:15 Total Protein 6.5 g/dL (6.4-8.2) 03/06/20 06:30 Albumin 2.0 g/dL (3.4-5.0) L 03/06/20 06:30 Triglycerides 742 mg/dL (<150) H 03/06/20 06:30 Total Cholesterol 296 mg/dL (<200) H 03/06/20 06:30 LDL Cholesterol Direct 94 mg/dL (<100) 03/06/20 06:30 LDL Cholesterol, Calc Tnp mg/dL (<100) 03/06/20 06:30 HDL Cholesterol 17 mg/dL (40-60) L 03/06/20 06:30 Ur Creatinine mg/dL 67.07 mg/dL 03/05/20 17:01 Ur Microalbumin mg/L 24.6 mg/L (1.30-20.0) H 03/05/20 17:01 Microalb/Creat Ratio 36.7 ug/mg Cr 03/05/20 17:01 Vancomycin Trough 16.2 ug/mL (10.0-20.0) 03/10/20 09:05
[2020-03-10 15:30] VITALS: BP 157/88; PULSE 97; RESP 19; TEMP 36.6; O2SAT 95
[2020-03-10] MEDS: HYDROmorphone 2 MG/ML VIAL 1 MG IVP (16:18)
--- NOTE | 2020-03-10 17:04 | PDOC.CMDIS ---
- If Service Date Differs Date of service: 03/10/20 Time of Service: 17:04 LACE Index Scoring Tool - Questions: Length of Stay (in days): 4 - 6 Acuity (Admit via E.D.?): Yes Comorbidities: Diabetes w/o Complication E.D. Visits: 2 - Answers: Total Score: 10 Risk of Readmission: High Risk Care Management Discharge Reason for Hospitalization: Abscess neck Discharge Plan: Evan is discharged home with a wound vac and new nursing. He is transported him via private vehicle with family. He will follow-up with [facility] to establish care and will follow-up with surgeon as directed. Patient/Family Education Needs: Discharge instructions, limitations, follow-up plan of care, including Ask Me Three and self-management. Services Needed at Discharge: Home Health Care Services (Nursing for wound care)
--- NOTE | 2020-03-10 18:04 | NUR.NOTE ---
pt was unable to secure medications from the pharmacy- per Swathi Gama, Nursing First Aid Nurse, she spoke with Radha from pharmacy and medications for use until RX open again were pulled from [employer] and given to Swathi. Swahti will liaise with ER provider to make arrangements for pick-up of medications. Nursing Note:
== END 2020-03-10 16:45 | disposition home health service (06) | DRG 581 ==
PROVIDERS: Family Medicine; Internal Medicine; Admitting Provider Surgery; PCP Family Medicine; Visit Provider Surgery
PROC: 0J950ZZ Drainage of Left Neck Subcutaneous Tissue and Fascia, Open Approach (ICD-10-PCS; CPT 21501; principal; 2020-03-05 12:00)
DX: L02.212 Cutaneous abscess of back [any part, except buttock and flank] (principal); R21 Rash and other nonspecific skin eruption; F17.210 Nicotine dependence, cigarettes, uncomplicated; E11.65 Type 2 diabetes mellitus with hyperglycemia; I10 Essential (primary) hypertension; E78.1 Pure hyperglyceridemia
CPT/HCPCS: 21501; 36410; 36415; 80048; 80053; 80061; 82947; 83721; 87040; 99232; 99233; 99253; J1650; NC; 80202; 82043; 82570; 83036; 83735; 84550; 85025; 86140; J0696; J1100; J1885; J2405; J2704; J3010; J3370; J3490

== ENCOUNTER 2020-04-04 03:12 | Outpatient (CLI) | payer OTHER, SELFPAY ==
--- NOTE | 2020-04-04 15:08 | DIABASSESS_ITS ---
49 y/o male with recently diagnosed DM2. On metformin 500mg BID and 44 units lantus. Has wound from abscess on upper back and c/o skin rash on elbows. Reports eating 3 eggs with steak for breakfast and diet hx of fast foods and sodas from which he now abstains. Now drinks water and coffee only. Evan says his PA has decreased due to recent surgery. He has been monitoring his BG levels and taking his DM meds per MD instructions. He reports family hx of DM with father and grandparent. Patient has hx no regular medical checkups. Evan is concerned about BG levels >200 and wants to know ways to help stabilize to reach goals within normal limits. He appears motivated and receptive to learning about the disease and how to self manage using menu planning, portion control, PA and weight loss INTERVENTION: Provided education on CHO types, counting, Label reading, relationship between kidney disease and DM, consequences of uncontrolled DM. Provided take home literature and stressed mindfulness, lifestyle changes, food choices. Provided weekly food record and BG monitoring log. Advised walking daily with slow return to fishing and hunting as wound heals per checking with MD Noted above: 500 mg metformin BID , 44 units Lantus per MD. Evan is aware of dosage and states he understands when to take his meds. Recommended Protein supplement to help with wound healing. Juvan or Beneprotein Some recent weight gain maybe r/t insulin use and elevated BG may be r/t ABX which is now DC'd. Evan has a positive attitude about managing his recent DM diagnosis. He has supportive daughter at home and benefited from CHO counting during recent inpatient stay . ACTION PLAN: Evan will complete food record and return on 03/12/20 for F/U appointment to review relationship between food choices, amounts consumed, nutrient timing and blood glucose levels. Time spent 45 minutes face to face.
== END 2020-04-04 03:32 ==
PROVIDERS: PCP Nurse Practitioner; Visit Provider Nurse Practitioner
DX: E11.9 Type 2 diabetes mellitus without complications (principal); Z79.4 Long term (current) use of insulin; Z71.3 Dietary counseling and surveillance
CPT/HCPCS: G0108

== ENCOUNTER 2020-04-10 03:35 | Outpatient (CLI) | payer OTHER, SELFPAY ==
[2020-04-10 14:13] LABS: HCT 42.6 % (40.0-50.0); HGB 14.9 g/dL (13.5-17.5); Mean Platelet Volume 9.7 fL (8.0-11.0); Platelet Count 282 x1000/uL (130-400); RBC 5.13 m/cumm (4.50-6.00)
[2020-04-10 14:16] LABS: Hemoglobin A1C 10.5 % (3.8-5.6)
[2020-04-10 14:58] LABS: ALT 23 U/L (16-63); AST 9 U/L (15-37); Albumin 3.7 g/dL (3.4-5.0); Alkaline Phosphatase 134 U/L (46-116); Anion Gap 6.3 mmol/L (3-11); BUN 15 mg/dL (7-18); Bilirubin, Total 0.5 mg/dL (0.2-1.0); CO2 31.7 mmol/L (21.0-32.0); CREATININE 0.81 mg/dL (0.70-1.30); Calcium 9.2 mg/dL (8.5-10.1); Chloride 102 mmol/L (98-107); Cholesterol 201 mg/dL (<200); Glucose 270 mg/dL (74-106); HDL Cholesterol 31 mg/dL (40-60); Potassium 3.8 mmol/L (3.5-5.1); Sodium 140 mmol/L (136-145); Total Protein 7.1 g/dL (6.4-8.2); Triglyceride 413 mg/dL (<150)
[2020-04-10 15:19] LABS: LDL CHOLESTEROL 100 mg/dL (<100)
== END 2020-04-10 03:55 ==
PROVIDERS: PCP Nurse Practitioner; Visit Provider Nurse Practitioner
DX: E11.65 Type 2 diabetes mellitus with hyperglycemia (principal); E78.1 Pure hyperglyceridemia; I10 Essential (primary) hypertension; L02.91 Cutaneous abscess, unspecified
CPT/HCPCS: 36415; 80053; 80061; 83721; 85027; 83036

== ENCOUNTER 2021-06-06 07:07 | Emergency (ER) | payer SELFPAY ==
[2021-06-06 07:09] VITALS: BP 150/120; PULSE 78; RESP 18; TEMP 36.4; O2SAT 96
[2021-06-06 07:22] LABS: Bilirubin Negative (Negative); Blood Negative (Negative); Clarity Clear (Clear); Glucose 500 mg/dL (Negative); Ketones Negative (Negative); Leukocyte Esterase Negative (Negative); Nitrite Negative (Negative); Specific Gravity 1.015 (1.005-1.025); Urobilinogen 0.2 EU/dL (Up TO 0.2)
--- NOTE | 2021-06-06 08:15 | ED.GENADUL_ITS ---
Discharge Plan Disposition Patient Disposition: HOME Condition: Stable Discharge Details Clinical Impression: Glucosuria, Back pain with left-sided radiculopathy Primary Care Provider: Cyn Murrieta ED Provider: Farzad Hatch Home Meds and New Rx's Prescriptions: Continued atorvastatin [Lipitor] 40 mg tablet 40 mg PO QPM Qty: 90 RF: 1 lisinopril 10 mg tablet 10 mg PO DAILY Qty: 90 RF: 1 metformin 500 mg tablet 1,000 mg PO BID@0800,1700 Qty: 360 RF: 1 Lantus Solostar U-100 Insulin 100 unit/mL (3 mL) insulin pen 44 unit SC HS Qty: 15 RF: 1 (DME) blood-glucose meter Kit See Rx Instructions .ROUTE .MEDSUPPLY Qty: 1 RF: 0 (DME) blood sugar diagnostic Strip See Rx Instructions .ROUTE .MEDSUPPLY Qty: 100 RF: 0 (DME) lancets Misc See Rx Instructions .ROUTE .MEDSUPPLY Qty: 100 RF: 0 (DME) Novofine Autocover 30 gauge x 1/3 needle See Rx Instructions .ROUTE .MEDSUPPLY Qty: 100 RF: 0 Discharge Instructions Instructions: Lumbar Radiculopathy (ED) Additional Instructions: Your diabetes is not under control. Urinalysis today revealed glucose in your urine. This indicates that your glucose level is too high. Please follow-up with your doctor as soon as possible for medication adjustment. Please take ibuprofen over the counter. Take 600mg by mouth every 6 hours as needed for pain. Please take acetaminophen (tylenol) - 650mg every 6 hours by mouth as needed for pain. Please use lidocaine patches?dose according to label. If pain persists and/or does not improve over the next couple weeks with treatment, please discuss this with your doctor as additional diagnostic testing may be necessary. Return to the emergency department immediately at any time for worsening or new concerning symptoms. Referrals: Cyn Murrieta NP [Primary Care Provider] - Medical Decision Making 830- 50-year-old male with history of diabetes presents with 3 months of intermittent left anterior lateral thigh pain that seems to radiate from his buttock down his leg. He is afebrile. No focal neurologic deficits. Abdominal exam benign. No tenderness or inflammatory changes noted on examination of thoracic and lumbar spine. Urinalysis was sent by nursing prior to my assessment and reviewed by me: No hematuria or glucosuria, glucosuria is present. No ketones. His symptoms and exam today most consistent with lumbar radiculopathy. Imaging is not indicated at this time. Plan for treatment with ibuprofen, Tylenol and lidocaine patch over the next week to see if there is improvement. I discussed with patient concern for poorly controlled diabetes given glucose present in the urine. He states that he has not been taking his Metformin as prescribed as it causes loose stools. Plan will be for close outpatient follow-up with PCP to review diabetic control and follow-up regarding pain. Disposition decision was made weighing the risks and benefits of hospitalization versus outpatient treatment, the risk for further decompensation, and the patient's wishes. The patient was stable and requested discharge. Prior to discharge, my usual and customary return precautions were reviewed with the patient - this included follow-up instructions and reason to return to the emergency department if condition worsens, does not improve as expected, or other new concerns arise. HPI General Mode of arrival: ambulatory . Date/Time Provider Initiated Documentation: 06/06/21 07:33 . Limitations to Documentation: no limitations . Information obtained by: patient . HPI Narrative: 50-year-old male with history of diabetes, presents with chief complaint of left leg pain. Patient notes for the past 2 to 3 months he has had intermittent pain in his left lateral and anterior lateral thigh. Pain seems to radiate from his left buttock into his thigh. He also notes some pain in his left lower abdomen at times. He states that pain seems to improve at times when he is more active and is worse lying down at night. No associated numbness or tingling or weakness in his leg. No bowel or bladder dysfunction. Patient denies hematuria, dysuria, testicular pain or swelling, nausea or vomiting, and fever. Related Data Home Medications Medication Instructions Recorded Confirmed Novofine Autocover #100 each 03/10/20 04/19/20 blood sugar diagnostic #100 each 03/10/20 04/19/20 blood-glucose meter #1 each 03/10/20 04/19/20 lancets #100 each 03/10/20 04/19/20 atorvastatin 40 mg tablet 40 mg PO QPM #90 tab 03/28/20 06/06/21 lisinopril 10 mg tablet 10 mg PO DAILY #90 tab 03/28/20 06/06/21 insulin glargine 100 unit/mL (3 44 unit SC HS #15 ml 04/11/20 06/06/21 mL) subcutaneous pen metformin 500 mg tablet 1,000 mg PO BID@0800,1700 #360 tab 04/11/20 06/06/21 Previous Rx's Medication Instructions Recorded Novofine Autocover #100 each 03/10/20 blood sugar diagnostic #100 each 03/10/20 blood-glucose meter #1 each 03/10/20 lancets #100 each 03/10/20 atorvastatin 40 mg tablet 40 mg PO QPM #90 tab 03/28/20 lisinopril 10 mg tablet 10 mg PO DAILY #90 tab 03/28/20 insulin glargine 100 unit/mL (3 44 unit SC HS #15 ml 04/11/20 mL) subcutaneous pen metformin 500 mg tablet 1,000 mg PO BID@0800,1700 #360 tab 04/11/20 Allergies Allergy/AdvReac Type Severity Reaction Status Date / Time oxycodone [Oxycodone] Allergy Mild skin rash Verified 06/06/21 07:17 General Stated Complaint: Urinary CARLOS: 3 Review of Systems All systems reviewed & are unremarkable except as noted in HPI and below Constitutional Constitutional: Denies fever(s) Gastrointestinal Gastrointestinal: Reports as per HPI Musculoskeletal Musculoskeletal: Reports as per HPI Neurologic Neurologic: Reports as per HPI [facility] Medical History Gout Hypertension Hypertriglyceridemia Kidney stone Low HDL (under 40) Neck abscess Rash Smoker Type 2 diabetes mellitus Surgical History Endoscopic Carpal Tunnel release (09/22/12) RIGHT Fracture, Open Treatment (09/22/12) ORIF PERILUNATE DILOCATION RIGHT. History of incision and drainage (~03/05/20) Family History Paternal Grandmother Diabetes Father Diabetes Heart disease Hypertension Social History Smoking/Tobacco Use Status: Current every day Tobacco Type: cigarettes Quit status: quit date established Smoking risk assessment performed?: Yes Alcohol Intake: never Drug use: Never Substance use type: does not use Adopted: No Caregiver/Support person: No Foster care: No Housing: apartment Number of Children: 5 number of grandchildren: 7 Communication Needs: None Do you need help understanding health information?: Rarely What is your relationship status?: Panel score (0-1 are the most socially isolated patients): 0 What type of physical activity do you participate in: none Seatbelt use: always Drive intox or ride w/intox superintendent drivers: No Do you feel safe at home: Yes Do you feel safe in your relationship?: Yes Exam Const General: cooperative and no acute distress HENMT Mouth: moist mucous membranes Eyes Conjunctivae: normal conjunctivae Sclera: normal sclerae Neck Neck: full ROM and nontender Resp Auscultation: clear to auscultation bilaterally, no rales, no rhonchi and no wheezes Cardio Rate: regular rate and not tachycardic Rhythm: regular rhythm Heart Sounds: no murmurs GI Palpation: soft, not firm, no guarding, no masses, not rigid and nontender Male General Exam: No hernia, No inguinal lymphadenopathy and No lesions Penis: normal penis Scrotum: scrotum normal Testes: normal, no testicular mass and no testicular swelling Back/Spine/Pelvis Thoracic/Lumbar Spine: thoracic and lumbar spine normal to inspection Skin General skin exam: no rashes or lesions noted Neuro General: patient alert, patient awake, patient oriented x3 and tone normal Cognition: normal cognition Gait: normal gait Motor: strength 5/5 throughout Sensory Exam: no sensory deficits noted and other (No saddle anesthesia) Extrem General: no edema Psych Appearance: grossly normal Mental Status: mental status grossly normal Course Vital Signs Vital signs: Vital Signs Temperature 36.4 C L 06/06/21 07:09 Pulse 78 06/06/21 07:09 Respiratory Rate 18 06/06/21 07:09 Blood Pressure 150/120 H 06/06/21 07:09 Pulse Oximetry 96 06/06/21 07:09 Temperature 36.4 C L 06/06/21 07:09 Temperature Source Skin 06/06/21 07:09 Pulse 78 06/06/21 07:09 Respiratory Rate 18 06/06/21 07:09 Respiratory Effort Non-Labored 06/06/21 07:19 Blood Pressure 150/120 H 06/06/21 07:09 Blood Pressure Position Sitting 06/06/21 07:09 Pulse Oximetry 96 06/06/21 07:09 Oxygen Delivery Method Room Air 06/06/21 07:09 Oxygen Flow Rate 0 06/06/21 07:09 Pain Level 6 06/06/21 07:19 Lab/Test Results Lab/Test Results: Laboratory Tests Range/Units 06/06/21 07:10 Urine Color (Yellow) Yellow Urine Clarity (Clear) Clear Urine pH (5-8) 5.0 Ur Specific [place] (1.005-1.025) 1.015 Urine Protein (Negative) mg/dL Negative Urine Ketones (Negative) mg/dL Negative Urine Blood (Negative) Negative Urine Nitrite (Negative) Negative Urine Bilirubin (Negative) Negative Urine Urobilinogen (Up TO 0.2) EU/dL 0.2 Ur Leukocyte Esterase (Negative) Negative Urine Glucose (Negative) mg/dL 500 H
[2021-06-06 08:23] VITALS: BP 152/109; PULSE 106; RESP 18; TEMP 36.8; O2SAT 95
[2021-06-06] MEDS: Acetaminophen 325 MG TAB 650 MG PO (08:30)
[2021-06-06] MEDS: Ibuprofen 600 MG TAB PO (08:30)
[2021-06-06] MEDS: Lidocaine 5% Patch 1 PATCH TP (08:30)
--- NOTE | 2021-06-06 08:39 | NUR.NOTE ---
Nursing Note: Referral to [facility] for poorly controlled diabetes faxed 06/06/2021 @ 08:40 libl
== END 2021-06-06 08:28 | disposition home or self-care (01) ==
PROVIDERS: Emergency Provider Student in an Organized Health Care Education/Training Program; PCP Nurse Practitioner
DX: R81 Glycosuria (principal); M54.16 Radiculopathy, lumbar region; E11.65 Type 2 diabetes mellitus with hyperglycemia; T38.3X6A Underdosing of insulin and oral hypoglycemic [antidiabetic] drugs, initial encounter; Z91.128 Patient's intentional underdosing of medication regimen for other reason; Z79.84 Long term (current) use of oral hypoglycemic drugs
CPT/HCPCS: 99282; 81003; 99283

== ENCOUNTER 2021-08-14 03:03 | Outpatient (CLI) | payer SELFPAY ==
[2021-08-14 15:52] LABS: Albumin 3.3 g/dL (3.4-5.0); BUN 13 mg/dL (7-18); Bilirubin, Total 0.9 mg/dL (0.2-1.0); Calcium 7.1 mg/dL (8.5-10.1); Chloride 96 mmol/L (98-107); Cholesterol 439 mg/dL (<200); Glucose 493 mg/dL (74-106); HDL Cholesterol 25 mg/dL (40-60); Potassium 4.4 mmol/L (3.5-5.1); Sodium 130 mmol/L (136-145)
[2021-08-14 18:00] LABS: AST 27 U/L (15-37); Alkaline Phosphatase 181 U/L (46-116)
[2021-08-14 18:01] LABS: CREATININE 0.5 mg/dL (0.70-1.30); Triglyceride 4044 mg/dL (<150)
[2021-08-14 18:14] LABS: LDL CHOLESTEROL 71 mg/dL (<100)
== END 2021-08-14 03:04 | disposition home or self-care (01) ==
LOC: LBO 03:03
PROVIDERS: PCP Nurse Practitioner; Visit Provider Nurse Practitioner
DX: I10 Essential (primary) hypertension (principal); E78.1 Pure hyperglyceridemia; E11.65 Type 2 diabetes mellitus with hyperglycemia
CPT/HCPCS: 36415; 80053; 80061; 83721

== ENCOUNTER → 2021-08-19 00:46 | Outpatient (CLI) | payer SELFPAY ==
--- NOTE | 2021-08-19 07:00 | DI.RAD_ITS ---
Exam(s) XR LUMBAR SPINE COMPLETE EXAM: XR LUMBAR SPINE COMPLETE CLINICAL HISTORY: back pain RADIATING TO LT LOWER EXTREMITY,M54.5,M79.605. TECHNIQUE: 2D digital imaging was performed of the lumbar spine. Five images were obtained. AP, la teral, right oblique, left oblique and L5-S1 spot views were obtained. COMPARISON: No exams were available for comparison FINDINGS: BONES: No fracture or destructive lesion. Vertebral bodies are unremarkable. Degenerative changes of the facets are seen at L4-5 and L5-S1. DISKS: Intervertebral disc spaces are maintained. Hypertrophic changes of the endplates are seen part icularly at L3-4 and L4-L5. ALIGNMENT: Lumbar spinal alignment is within normal limits. No spondylolysis or spondylolisthesis. SOFT TISSUE: Normal. IMPRESSION: Moderate degenerative changes in the lumbar spine. DATA REPOSITORY: RADIATION DOSE DELIVERED:
== END ==
PROVIDERS: PCP Nurse Practitioner; Visit Provider Nurse Practitioner
DX: M54.5 Low back pain (principal); M79.605 Pain in left leg; M54.16 Radiculopathy, lumbar region; M47.27 Other spondylosis with radiculopathy, lumbosacral region
CPT/HCPCS: 72110

== ENCOUNTER 2021-08-26 04:26 | Outpatient (CLI) | payer SELFPAY ==
[2021-08-26 09:32] LABS: ALT 27 U/L (16-63); AST 12 U/L (15-37); Albumin 3.7 g/dL (3.4-5.0); Alkaline Phosphatase 117 U/L (46-116); BUN 12 mg/dL (7-18); Bilirubin, Total 0.5 mg/dL (0.2-1.0); CREATININE 0.8 mg/dL (0.70-1.30); Calcium 9.2 mg/dL (8.5-10.1); Chloride 99 mmol/L (98-107); Cholesterol 193 mg/dL (<200); Glucose 252 mg/dL (74-106); HDL Cholesterol 20 mg/dL (40-60); Potassium 4.3 mmol/L (3.5-5.1); Sodium 133 mmol/L (136-145); Total Protein 7.2 g/dL (6.4-8.2)
[2021-08-26 09:41] LABS: Triglyceride 577 mg/dL (<150)
[2021-08-26 09:56] LABS: LDL CHOLESTEROL 54 mg/dL (<100)
== END 2021-08-26 04:27 | disposition home or self-care (01) ==
LOC: LBO 04:27
PROVIDERS: PCP Nurse Practitioner; Visit Provider Nurse Practitioner
DX: I10 Essential (primary) hypertension (principal); E78.1 Pure hyperglyceridemia; E78.6 Lipoprotein deficiency; E11.65 Type 2 diabetes mellitus with hyperglycemia
CPT/HCPCS: 36415; 80053; 80061; 83721

== ENCOUNTER 2021-09-30 08:43 | Outpatient (CLI) | payer SELFPAY ==
--- NOTE | 2021-09-30 08:30 | RT.EKG_ITS ---
APPROVED REPORT Exam: Resting ECG Reason for Exam: Monitoring Patient Location: O HR:119 bpm ECG Measurements Heart Rate 119 AXIS MS 138 P 48 QRSd 79 QRS -39 QT 321 T 38 QTc 452 Conclusion Sinus tachycardia...rate> 99 Left axis
== END 2021-09-30 08:44 | disposition home or self-care (01) ==
LOC: DI.KIM 08:44
PROVIDERS: PCP Nurse Practitioner; Visit Provider Nurse Practitioner
DX: Z51.81 Encounter for therapeutic drug level monitoring (principal); Z79.899 Other long term (current) drug therapy
CPT/HCPCS: 93010